=== PATIENT | male | born 1935 | race Caucasian/White ===

== ENCOUNTER 2017-05-04 15:34 | Emergency (ER) | payer MEDICARE ==
[2017-05-04 16:29] LABS: #Eosinphils 0.2 thou/uL (0.0-0.7); #Lymphocytes 0.8 thou/uL (1.20-3.40); #Monocytes 0.4 thou/uL (0.11-0.59); #Neutrophils 3.6 thou/uL (1.40-6.50); %Basophils 0.2 % (0.0-1.0); %Eosinophils 4.8 % (0.0-10.0); %Lymphocytes 15.8 % (21.0-51.0); %Monocytes 8.7 % (0.0-10.0); %Neutrophils 70.4 % (42.0-75.0); Hemoglobin 11.3 g/dL (14.0-18.0); Mean Corpuscular HGB CONC 32.9 g/dL (32.0-36.0); Mean Corpuscular Hemoglobin 29.4 pg (27.0-31.0); Mean Corpuscular Volume 89.6 fl (80.0-94.0); Mean Platelet Volume 8.7 fL (7.4-10.4); Platelet Count 164 thou/uL (130-400); RBC Distribution Width 12.8 % (11.5-14.5); Red Blood Cell (RBC) Count 3.83 mill/uL (4.70-6.10)
[2017-05-04 16:30] LABS: INR-International Normal Ratio 1.2; PTT 29.1 SEC (22.9-36.1); Prothrombin Time 14.9 SEC (12.0-14.7)
[2017-05-04 16:49] LABS: ALT (SGPT) 47 U/L (8-55); AST (SGOT) 34 U/L (5-34); Albumin 3.5 g/dL (3.4-4.8); Alkaline Phosphatase 68 U/L (40-150); Anion Gap 11 mmol/L (10-20); BUN (Urea Nitrogen) 20 mg/dL (8.4-25.7); Bilirubin, Total 0.4 mg/dL (0.2-1.2); Calc. Creatinine Clearance 0 mL/min (70-130); Calcium 9.2 mg/dL (7.8-10.44); Carbon Dioxide 28 mmol/L (23-31); Chloride 102 mmol/L (98-107); Estimated GFR-MDRD 57; Globulin 3.3 g/dL (2.4-3.5); Glucose 309 mg/dL (83-110); Potassium 3.9 mmol/L (3.5-5.1); Protein, Total 6.8 g/dL (5.8-8.1); Sodium 137 mmol/L (136-145)
[2017-05-04 16:51] LABS: Troponin I 0.024 ng/mL (< 0.028)
--- NOTE | 2017-05-04 17:29 | RAD ---
ONE VIEW CHEST 05/04/17 HISTORY: Cough. COMPARISON: 12/28/16. FINDINGS: Portable upright chest demonstrates a normal cardiac silhouette. Pulmonary vessels are prominent. Th ere is right hilar fullness. There are diffuse reticulonodular opacities, without consolidation or ma ss. No pneumothorax or osseous abnormalities. IMPRESSION: Pulmonary vascular prominence. Interstitial edema. Volume overload. Continued surveillance. Right hilar fullness. Better interrogation with a nonemergent chest CT is recommended. Dr. Elizondo, 05/04/17, at 5:15 p.m. Code CR POS: [facility]
== END 2017-05-04 17:55 | disposition home or self-care (01) ==
LOC: ERS 15:34
DX: K92.2 Gastrointestinal hemorrhage, unspecified (principal); D64.9 Anemia, unspecified; E10.9 Type 1 diabetes mellitus without complications; I10 Essential (primary) hypertension; Z79.899 Other long term (current) drug therapy; Z79.01 Long term (current) use of anticoagulants; Z79.4 Long term (current) use of insulin
CPT/HCPCS: 71045; 80053; 83880; 84484; 85025; 85610; 85730; 86850; 86900; 86901

== ENCOUNTER 2017-07-24 13:13 | Inpatient (IN) | payer MEDICARE ==
[~2017-07-24 13:13] MED LIST: ISOVUE-370 76%-LOCM 1 ML ONE
[2017-07-24 14:05] LABS: #Eosinphils 0.3 thou/uL (0.0-0.7); #Lymphocytes 0.9 thou/uL (1.20-3.40); #Monocytes 0.6 thou/uL (0.11-0.59); #Neutrophils 4.2 thou/uL (1.40-6.50); %Basophils 0.5 % (0.0-1.0); %Eosinophils 5.7 % (0.0-10.0); %Lymphocytes 14.7 % (21.0-51.0); %Monocytes 9.7 % (0.0-10.0); %Neutrophils 69.4 % (42.0-75.0); Hemoglobin 13.4 g/dL (14.0-18.0); Mean Corpuscular HGB CONC 32.7 g/dL (32.0-36.0); Mean Corpuscular Hemoglobin 27.6 pg (27.0-31.0); Mean Corpuscular Volume 84.2 fl (80.0-94.0); Mean Platelet Volume 8.1 fL (7.4-10.4); Platelet Count 161 thou/uL (130-400); Red Blood Cell (RBC) Count 4.86 mill/uL (4.70-6.10)
[2017-07-24 14:27] LABS: ALT (SGPT) 26 U/L (8-55); AST (SGOT) 26 U/L (5-34); Albumin 4.1 g/dL (3.4-4.8); Alkaline Phosphatase 66 U/L (40-150); Anion Gap 12 mmol/L (10-20); BUN (Urea Nitrogen) 25 mg/dL (8.4-25.7); Bilirubin, Total 0.4 mg/dL (0.2-1.2); Calc. Creatinine Clearance 0 mL/min (70-130); Calcium 9.8 mg/dL (7.8-10.44); Carbon Dioxide 26 mmol/L (23-31); Chloride 103 mmol/L (98-107); Estimated GFR-MDRD 52; Globulin 3.4 g/dL (2.4-3.5); Glucose 121 mg/dL (83-110); Potassium 3.9 mmol/L (3.5-5.1); Protein, Total 7.5 g/dL (5.8-8.1); Sodium 137 mmol/L (136-145)
[2017-07-24 14:28] LABS: Bilirubin Negative (Negative); Blood, Urine Negative (Negative); Clarity CLEAR (Clear); Glucose, Urine (Dipstick) Negative (Negative); Leukocyte Negative (Negative); Nitrite Negative (Negative); Protein, Urine (Dipstick) Negative (Neg-Trace); Specific Gravity, Urine 1.012 (1.002-1.036)
[2017-07-24 18:03] LABS: INR-International Normal Ratio 1.1; Prothrombin Time 14.2 SEC (12.0-14.7)
[2017-07-24] MEDS ORDERED: Acetaminophen 325 MG TAB PO PRN (19:28)
[2017-07-24] MEDS ORDERED: Dextrose 5% in Water 1,000 ML IV PRN (19:54)
[2017-07-24] MEDS ORDERED: Dextrose 50% Abboject 50 ML SYRINGE SLOW IVP PRN (19:54)
[2017-07-24] MEDS ORDERED: Pantoprazole 40 MG VIAL ONE (20:22)
[2017-07-24 20:35] LABS: Hemoglobin 12.9 g/dL (14.0-18.0)
--- NOTE | 2017-07-24 20:47 | CT ---
CT OF THE BRAIN WITHOUT CONTRAST 07/24/17 INDICATION: Rectal bleeding with headache. COMPARISON: Prior exam dated 06/17/12. FINDINGS: There is generalized cerebral and cerebellar atrophy with prominent vascular calcifications involving the intracranial arteries. No definite acute infarct, hemorrhage, or hydrocephalus is present. There is mucosal thickening within the ethmoid air cells. Skull is intact. IMPRESSION: 1. No acute intracranial abnormality. 2. Mild paranasal sinus disease. POS: [facility]
[2017-07-24] MEDS ORDERED: Famotidine 40 MG/4 ML VIAL SLOW IVP SCH (21:00)
[2017-07-24] MEDS ORDERED: Pantoprazole 40 MG VIAL IVP SCH (21:00)
--- NOTE | 2017-07-24 21:00 | CT ---
CT ABDOMEN AND PELVIS WITH IV CONTRAST: INDICATIONS: Rectal bleeding and abdominal pain. FINDINGS: There is a 3.2 cm cyst within the right hepatic dome. A smaller cyst is seen within segment 5 of the right hepatic lobe. The gallbladder is surgically absent. The pancreas and adrenal glands are unremarkable. There is nonspecific claudia mesentery of the central mesenteric fat. No pathologically enlarged lymph nodes are evident. There is scattered vascular calcification. The visualized kidneys are normal appearing. There are mild calcifications involving the abdominal and pelvis vasculature. There is prominent wall thickening with surrounding inflammatory stranding involving the rectum. The re is a moderate amount of retained stool within the colon. There are scattered colonic diverticula. There is a normal appendix in the right lower quadrant. The small bowel has a normal caliber. The re is diffuse osteopenia. No acute osseous abnormality is evident. IMPRESSION: 1. Wall thickening with surrounding inflammatory change involving the rectum, suspicious for proctit is. Rectal malignancy is not excluded. Recommend correlation with clinical exam. 2. Moderate amount of retained stool. 3. Bladder diverticulum. 4. Right hepatic lobe cyst. 5. Cholecystectomy. 6. Colonic diverticulosis. POS: [facility]
[2017-07-24 22:08] VITALS: BMI 31.7
[2017-07-24] MEDS: Dextrose 5 % And 0.9 % NaCl 1,000 ML IV SCH (22:29)
[2017-07-24] MEDS: Tamsulosin HCl 0.4 MG CAP PO SCH (22:33)
--- NOTE | 2017-07-25 00:16 | HP ---
PRIMARY CARE PHYSICIAN: Dr. Bang CHIEF COMPLAINT: Bright blood per rectum. HISTORY OF PRESENT ILLNESS: Patient is a very pleasant 81-year-old male with a history of atrial fib rillation, on Eliquis; history of prostate cancer, status post radiation; who presents to the [facility] with complaints of bright blood per rectum. Upon questioning the patient and the patient's [facility] er, patient states that he has been having this rectal bleeding ongoing for the past 4 months. [facility] er, he continues to take Eliquis. Patient stated that today he went to the bathroom, had 2 balls of stool, and followed by when he tried to clean himself, he noticed a lot of blood in the tissue paper and also had multiple clots. Patient stated that, later on today, he had a similar episode; however, the clots were more than his baseline clots. Patient denies any dizziness or lightheadedness; [facility], the caregiver states that whenever patient bleeds quite a bit, he actually gets very, very sleepy . Patient states that he does have some lower abdominal pain. Did state that he did have some burni ng when urinating. The patient denies any fevers or chills, any nausea, vomiting, or diarrhea. PAST MEDICAL HISTORY: Atrial fibrillation, on apixaban; DM, type 2; hypertension; prostate cancer, r adiation in 2017. PAST SURGICAL HISTORY: He had a cholecystectomy. SOCIAL HISTORY: He denies any alcohol use, drug use, or any smoking history. REVIEW OF SYSTEMS: The following complete review of systems was negative, unless otherwise mentioned in the HPI or below: Constitutional: Weight loss or gain, ability to conduct usual activities. Sk in: Rash, itching. Eyes: Double vision, pain. ENT/Mouth: Nose bleeding, neck stiffness, pain, te nderness. Cardiovascular: Palpitations, dyspnea on exertion, orthopnea. Respiratory: Shortness of breath, wheezing, cough, hemoptysis, fever, or night sweats. Gastrointestinal: Poor appetite, abdo scott pain, heartburn, nausea, vomiting, constipation, or diarrhea. Genitourinary: Urgency, frequen cy, dysuria, nocturia. Musculoskeletal: Pain, swelling. Neurologic/Psychiatric: Anxiety, depressi on. Allergy/Immunologic: Skin rash, bleeding tendency. All negative except for the ones mentioned in the HPI. MEDICATIONS: This is per ER's note, glipizide 10 mg twice a day, finasteride 1 mg daily, Lipitor 10 mg daily, Flomax 0.4 mg daily, furosemide 20 mg daily, Humulin 70/30 unknown units twice a day, omepr azole 20 mg daily, amlodipine 10 mg daily, Eliquis 5 mg daily. LABORATORY AND X-RAY FINDINGS: [facility], patient's WBCs are 6.0, hemoglobin of 13.3, hematocrit 40.9 , platelets of 161. Chemistry: Sodium of 137, potassium of 3.9, bicarbonate of 26, anion gap of 12, creatinine of 1.32. Lactic acid of 1.3. LFTs are normal. Urine completely normal. PHYSICAL EXAMINATION: VITAL SIGNS: He has 97.5 temperature, 96% on room air, 18 respirations, 79 pulse, 149/79. GENERAL: He is awake, alert, oriented x3, does not appear pale. CARDIOVASCULAR: S1 and S2 present. No murmurs, rubs, or gallops. Irregularly irregular. LUNGS: Clear to auscultation, no rhonchi or wheezes noted. ABDOMEN: Soft. Bowel sounds are present x2. Pain upon palpation to bilateral suprapubic area. Ginette ble to appreciate hepatomegaly or splenomegaly. EXTREMITIES: A 2+ lower extremity pitting edema. ASSESSMENT AND PLAN: The patient is a very pleasant 81-year-old male, who presents to the hospital w ith complaints of bright blood per rectum. 1. Bright blood per rectum. This could be most likely secondary to either proctitis since he has tanner d radiation around his prostate area versus diverticulosis. The patient does not have any pain when he goes to the bathroom. However, has been having lower abdominal pain. The patient did have a CT a bdomen and pelvis, the results are pending. We will hold the patient's Eliquis. We will start hydra ting gently. We will also consult Gastroenterology. May start prophylactic antibiotics even though his urine appears normal, since he has been complaining of burning, and since the bleeding is unclear if it is from diverticulosis versus proctitis. We will continue patient's PPI. 2. Atrial fibrillation. I am not sure why this patient has continued to take Eliquis given his freq uent bleeding. May want to hold off on the Eliquis. I discussed with the patient the risk of scenar io having a stroke or continues to have gastrointestinal bleed. We will continue to monitor patient. 3. Diabetes. We will put the patient on sliding scale. We will hold off on his 70/30 for now, sinc e he is currently on clear liquids and will n.p.o. after midnight in case Gastroenterology wants to d o any procedures. 4. Sequential compression devices for deep vein thrombosis prophylaxis.
[2017-07-25 02:12] LABS: Hemoglobin 11.7 g/dL (14.0-18.0)
[2017-07-25 05:47] LABS: #Eosinphils 0.3 thou/uL (0.0-0.7); #Lymphocytes 0.8 thou/uL (1.20-3.40); #Monocytes 0.6 thou/uL (0.11-0.59); #Neutrophils 3.7 thou/uL (1.40-6.50); %Basophils 0.2 % (0.0-1.0); %Eosinophils 5.2 % (0.0-10.0); %Lymphocytes 15.2 % (21.0-51.0); %Monocytes 10.4 % (0.0-10.0); %Neutrophils 68.9 % (42.0-75.0); Mean Corpuscular HGB CONC 32.8 g/dL (32.0-36.0); Mean Corpuscular Hemoglobin 27.7 pg (27.0-31.0); Mean Corpuscular Volume 84.4 fl (80.0-94.0); Mean Platelet Volume 8.2 fL (7.4-10.4); Platelet Count 143 thou/uL (130-400); RBC Distribution Width 13.8 % (11.5-14.5); Red Blood Cell (RBC) Count 4.35 mill/uL (4.70-6.10); White Blood Cell (WBC) Count 5.4 thou/uL (4.8-10.8)
[2017-07-25 05:59] LABS: ALT (SGPT) 22 U/L (8-55); AST (SGOT) 21 U/L (5-34); Albumin 3.6 g/dL (3.4-4.8); Alkaline Phosphatase 54 U/L (40-150); Anion Gap 11 mmol/L (10-20); BUN (Urea Nitrogen) 18 mg/dL (8.4-25.7); Bilirubin, Total 0.5 mg/dL (0.2-1.2); Calc. Creatinine Clearance 70 mL/min (70-130); Carbon Dioxide 25 mmol/L (23-31); Chloride 107 mmol/L (98-107); Estimated GFR-MDRD 60; Globulin 2.7 g/dL (2.4-3.5); Glucose 159 mg/dL (83-110); Potassium 3.9 mmol/L (3.5-5.1); Protein, Total 6.3 g/dL (5.8-8.1); Sodium 139 mmol/L (136-145)
[2017-07-25 08:38] LABS: Hemoglobin 12.3 g/dL (14.0-18.0)
[2017-07-25] MEDS ORDERED: Prevnar 13-Val Conj/PF 0.5 ML SYRINGE IM ONE (09:00)
[2017-07-25] MEDS ORDERED: Pantoprazole 40 MG VIAL IVP SCH (09:00)
[2017-07-25] MEDS: Dextrose 5 % And 0.9 % NaCl 1,000 ML IV SCH ×2 (09:56→21:44)
--- NOTE | 2017-07-25 14:09 | PDOC.PN ---
- Subjective Encounter Start Date: 07/25/17 Encounter Start Time: 10:00 Subjective: pt up in bed no complains - Objective Resuscitation Status: Resuscitation Status FULL:Full Resuscitation Vital Signs & Weight: Vital Signs (12 hours) Temp Pulse Resp BP Pulse Ox 07/25/17 13:02 98.4 F 58 L 18 121/74 99 07/25/17 08:00 97.6 F 66 20 123/65 96 07/25/17 04:00 98.1 F 64 20 110/71 96 I&O: 07/24/17 07/25/17 07/26/17 06:59 06:59 06:59 Intake Total 1050 Balance 1050 Result Diagrams: 07/25/17 08:28 07/25/17 05:25 Additional Labs: Accuchecks 07/25/17 07/25/17 07/25/17 11:32 04:38 00:12 POC Glucose 155 H 160 H 179 H 07/24/17 21:56 POC Glucose 64 L Phys Exam - Physical Examination HEENT: PERRLA, moist MMs, sclera anicteric, TM's clear, oral pharynx no lesions , 2+ tonsils Neck: no nodes, no JVD, supple, full ROM Respiratory: no wheezing, no rales, no rhonchi, wheezing present, clear to auscultation bilateral Cardiovascular: RRR, no significant murmur, no rub, gallop, irregular Gastrointestinal: soft, non-tender, no distention, positive bowel sounds Neurological: non-focal, normal sensation, moves all 4 limbs Dx/Plan - Plan * 1) bright blood per rectum * 2) proctitis: ct finding indicates thickening around the rectum. * 3) afib * 4) hx of prostate cancer s/p radiation * * plan: pt's hh has been stable. He was on eliquis which is held. Pt has been having this problem for several months now but i was told by the caregiver yesterday that his bleeding was more than usual. Also pt strains when he goes to the bathroom. Ua normal. Awaiting gi eval. will put pt on stool softeners and stimulants so that he does not strain. Also he needs to discuses options in regards to continuing AC given his frequent bleeding problem. * * pt today has had two bowel movements and noticed blood only on tissue. Review of Systems - Review of Systems Eyes: negative: Pain, Vision Change, Conjunctivae Inflammation, Eyelid Inflammation, Redness, Other ENT: negative: Ear Pain, Ear Discharge, Nose Pain, Nose Discharge, Nose Congestion, Mouth Pain, Mouth Swelling, Throat Pain, Throat Swelling, Other Respiratory: negative: Cough, Dry, Shortness of Breath, Hemoptysis, SOB with Excertion, Pleuritic Pain, Sputum, Wheezing Cardiovascular: negative: chest pain, palpitations, orthopnea, paroxysmal nocturnal dyspnea, edema, light headedness, other Gastrointestinal: negative: Nausea, Vomiting, Abdominal Pain, Diarrhea, Constipation, Melena, Hematochezia, Other Genitourinary: negative: Dysuria, Frequency, Incontinence, Hematuria, Retention , Other Musculoskeletal: negative: Neck Pain, Shoulder Pain, Arm Pain, Back Pain, Hand Pain, Leg Pain, Foot Pain, Other - Medications/Allergies Allergies/Adverse Reactions: Allergies Allergy/AdvReac Type Severity Reaction Status Date / Time No Known Allergies Allergy Verified 07/24/17 22:21 Medications: Current Medications Acetaminophen (Tylenol) 650 mg PO Q4H PRN PRN Reason: Headache/Fever or Pain Dextrose/Water (Dextrose 50%) 25 gm SLOW IVP PRN PRN PRN Reason: Hypoglycemia Glucagon (Glucagon) 1 mg IM PRN PRN PRN Reason: Hypoglycemia Dextrose/Sodium Chloride (D5 0.9% Ns) 1,000 mls @ 75 mls/hr IV .[id number] [facility] Last Admin: 07/25/17 09:56 Dose: 1,000 mls Dextrose/Water (D5w) 1,000 mls @ 0 mls/hr IV .Q0M PRN; As Directed PRN Reason: Hypoglycemia Insulin Human Lispro (Humalog) 0 units SC .MILD SLIDING SCALE PRN PRN Reason: Mild Correctional Scale Pantoprazole Sodium (Protonix) 40 mg IVP Q12HR [facility] Last Admin: 07/25/17 09:52 Dose: 40 mg Polyethylene Glycol (Miralax) 17 gm PO DAILY [facility] Senna/Docusate Sodium (Senokot S) 1 tab PO BID [facility] Sodium Chloride (Flush - Normal Saline) 10 ml IVF Q12HR [facility] Last Admin: 07/25/17 09:56 Dose: Not Given Sodium Chloride (Flush - Normal Saline) 10 ml IVF PRN PRN PRN Reason: Saline Flush Tamsulosin HCl (Flomax) 0.4 mg PO [facility] Last Admin: 07/24/17 22:33 Dose: 0.4 mg
[2017-07-25 14:49] LABS: Hemoglobin 12.7 g/dL (14.0-18.0)
[2017-07-25] MEDS ORDERED: GoLYTELY 4,000 ml Bottle PO SCH (15:15)
[2017-07-25] MEDS ORDERED: Senokot S 8.6-50 MG TAB PO SCH ×2 (16:15→21:00)
[2017-07-25] MEDS: HumaLOG 300 UNITS/3 ML VIAL SC PRN (18:37)
[2017-07-25] MEDS: Tamsulosin HCl 0.4 MG CAP PO SCH (20:09)
[2017-07-25] MEDS: Senokot S 8.6-50 MG TAB PO SCH (20:09)
--- NOTE | 2017-07-25 23:59 | CON ---
DATE OF CONSULTATION: 07/25/2017 HISTORY OF PRESENT ILLNESS: Mr. Carrasquillo was admitted to the hospital for rectal bleeding. He called our office and said he was going to the hospital yesterday for bleeding and the fact that he could no t urinate. In the emergency room, he had a large amount of blood clots and he was feeling weak that he could not urinate. He has had a previous history, now he notes he is urinating fine. 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 He was back in the office in early July with ongoing slight bleeding, but stable hemoglobin above 12. He is on Eliquis and we explained to him that he will have intermittent bleeding at times. Here in the emergency room, he had a stable hemoglobin and stable v ital signs. It is not clear that any rectal examination was done, it does not appear so. They perfo rmed a CAT scan of the abdomen and pelvis and admitted him. A CAT scan show some surrounding inflamm ation and wall thickening around the rectum suspicious for "proctitis". On my review, he has quite a bit of retained stool. On talking to the patient, he states he is actually not having blood in the stool; just when he wipes, he sees blood. PAST MEDICAL HISTORY: Atrial fibrillation on apixaban, diabetes type 2, hypertension, prostate cance r with radiation in 2016. PAST SURGICAL HISTORY: Cholecystectomy, previous colonoscopies, recent colonoscopy in 03/2017 with a rgon plasma coagulation, ablation of radiation proctitis. SOCIAL HISTORY: No alcohol, drugs, or tobacco. REVIEW OF SYSTEMS: Negative for chest pain, shortness of breath, dyspnea on exertion. PRESENT MEDICATIONS: Tylenol, D5 normal at 75, glucagon insulin, Protonix, MiraLax, Senokot b.i.d. s cheduled and appeared to have been given. PHYSICAL EXAMINATION: VITAL SIGNS: Temperature 98, pulse 58, blood pressure 120/74. GENERAL: The patient is resting comfortably in bed. He states he feels well, he is not dizzy or fee ling weak. LABORATORY DATA: Hemoglobin is 13.4 on admission, is 12.7 today. He has had 6 hemoglobins drawn sin ce he has been here. ASSESSMENT: Rectal bleeding, likely related to hemorrhoids or small amounts of radiation proctitis i n relationship to a large fecal impaction and being on anticoagulation. RECOMMENDATIONS: 1. Stop serial H&Hs. 2. Bowel preparation. 3. We will perform a flex sig tomorrow and if there is any more radiation proctitis and this needs t o be ablated, we can do that in the future. I do not think the patient needs to be admitted for rect al bleeding unless he is having acute hemorrhage and has signs of overt blood loss.
[2017-07-26] MEDS: Dextrose 5 % And 0.9 % NaCl 1,000 ML IV SCH (04:58)
[2017-07-26] MEDS: Polyethylene Glycol 3350 17 GM Packet PO SCH (07:28)
--- NOTE | 2017-07-26 10:29 | OP ---
DATE OF PROCEDURE: 07/26/2017 SURGEON: Robin Chin M.D. HELICOPTER MECHANIC SURGEON: None. PROCEDURE: Flexible sigmoidoscopy with argon plasma coagulation treatment. INDICATION: 1. Rectal bleeding. 2. History of rectal radiation telangiectasia's. MEDICATIONS: See anesthesia record. FINDINGS: After discussion of the risks, benefits and alternatives of the procedure, informed consen t was obtained and witnessed. Pre-endoscopic cardiopulmonary examination was satisfactory. Timeout was performed before sedation was achieved. Sedation was achieved with anesthesia assistance in the endoscopy unit. Digital rectal exam was performed which was unremarkable. A Pentax adult colonoscop e was inserted into the rectum and passed forward to a distance of 45 cm from the anal verge. The co lonoscope was slowly withdrawn in a gradual and circumferential manner with careful examination of th e colonic mucosa. The quality of the prep was good. There was diverticulosis in the sigmoid colon. No evidence of diverticulitis. No old blood or active bleeding noted anywhere. In the distal rectu m, there is patchy radiation telangiectasia's comparing the appearance now to the images from his jb or procedure, the number of telangiectasia's is greatly reduced. There are a few areas of mild friab ility and oozing. In the very distal rectum, there is some shallow ulceration without bleeding, like ly consistent with prior radiation changes as well as prior APC treatment. I did perform argon plasm a coagulation treatment to the remaining rectal telangiectasia's at a setting of 0.8 liters per minut e and 30 pedro. Estimated blood loss was minimal. The exam was otherwise without abnormality on dir ect and retroflexed views. The colonoscope was completely withdrawn and the patient allowed to recov er. The patient tolerated the procedure well. There were no immediate post-procedure complications. IMPRESSION: 1. 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 2. Shallow ulcer in the distal rectum consistent with prior APC treatment and radiation changes. 3. Sigmoid diverticulosis. RECOMMENDATIONS: 1. Advance diet. 2. Daily stool softener. 3. GI will sign off. Okay for hospital discharge from a GI perspective. Follow up in clinic with Emiliano Miner in 2-3 weeks. Please call back with questions or concerns.
[2017-07-26] MEDS: Senokot S 8.6-50 MG TAB PO SCH ×2 (11:13→20:24)
--- NOTE | 2017-07-26 12:52 | PDOC.PN ---
- Subjective Encounter Start Date: 07/26/17 Encounter Start Time: 08:45 -: old records requested/rev pt had colonoscopy, still pt has some blood in stool Patient seen and examined. No new complaints. No overnight events - Objective Resuscitation Status: Resuscitation Status FULL:Full Resuscitation MAR Reviewed: Yes Vital Signs & Weight: Vital Signs (12 hours) Temp Pulse Resp BP Pulse Ox 07/26/17 11:00 97.4 F L 64 16 158/82 H 98 07/26/17 08:00 97.8 F 68 18 07/26/17 07:13 97.8 F 68 18 144/82 H 96 07/26/17 04:00 97.6 F 72 18 112/63 95 I&O: 07/25/17 07/26/17 07/27/17 06:59 06:59 06:59 Intake Total 1050 Balance 1050 Result Diagrams: 07/25/17 14:34 07/25/17 05:25 Additional Labs: Accuchecks 07/26/17 07/26/17 07/26/17 11:18 08:09 04:21 POC Glucose 129 H 154 H 102 07/25/17 07/25/17 20:29 17:19 POC Glucose 243 H 276 H Phys Exam - Physical Examination Constitutional: NAD HEENT: PERRLA, moist MMs, sclera anicteric Neck: no JVD, supple Respiratory: no wheezing, no rales, no rhonchi Cardiovascular: RRR, no significant murmur, no rub Gastrointestinal: soft, non-tender, no distention, positive bowel sounds Musculoskeletal: no edema, pulses present Neurological: non-focal, normal sensation, moves all 4 limbs Psychiatric: normal affect, A&O x 3 Skin: no rash, normal turgor Dx/Plan (1) Acute radiation proctitis Code(s): K62.89 - OTHER SPECIFIED DISEASES OF ANUS AND RECTUM; T66.XXXA - RADIATION SICKNESS, UNSPECIFIED, INITIAL ENCOUNTER Status: Acute (2) Obesity (BMI 30.0-34.9) Code(s): E66.9 - OBESITY, UNSPECIFIED Status: Acute (3) Rectal bleed Code(s): K62.5 - HEMORRHAGE OF ANUS AND RECTUM Status: Acute (4) BPH (benign prostatic hyperplasia) Code(s): N40.0 - BENIGN PROSTATIC HYPERPLASIA WITHOUT LOWER URINRY TRACT SYMP Status: Chronic (5) Chronic anticoagulation Code(s): Z79.01 - PRISON (CURRENT) USE OF ANTICOAGULANTS Status: Chronic (6) Diabetes type 2, controlled Code(s): E11.9 - TYPE 2 DIABETES MELLITUS WITHOUT COMPLICATIONS Status: Chronic (7) Dyslipidemia Code(s): E78.5 - HYPERLIPIDEMIA, UNSPECIFIED Status: Chronic (8) GERD (gastroesophageal reflux disease) Code(s): K21.9 - GASTRO-ESOPHAGEAL REFLUX DISEASE WITHOUT ESOPHAGITIS Status: Chronic (9) Hypertension Code(s): I10 - ESSENTIAL (PRIMARY) HYPERTENSION Status: Chronic (10) Paroxysmal atrial fibrillation Code(s): I48.0 - PAROXYSMAL ATRIAL FIBRILLATION Status: Chronic - Plan cont current plan of care * His H & H is stable * his rectal bleed is treated today with APC * pt will be monitored today and repeat CBC tomorrow * if stable by tomorrow, then will consider discharge * will ask GI when we can start anticoagulation safely on him * medication reviewed as below * symptomatic treatment. Review of Systems - Review of Systems Constitutional: negative: fever, chills, sweats, weakness, malaise, other Eyes: negative: Pain, Vision Change, Conjunctivae Inflammation, Eyelid Inflammation, Redness, Other ENT: negative: Ear Pain, Ear Discharge, Nose Pain, Nose Discharge, Nose Congestion, Mouth Pain, Mouth Swelling, Throat Pain, Throat Swelling, Other Respiratory: negative: Cough, Dry, Shortness of Breath, Hemoptysis, SOB with Excertion, Pleuritic Pain, Sputum, Wheezing Cardiovascular: negative: chest pain, palpitations, orthopnea, paroxysmal nocturnal dyspnea, edema, light headedness, other Gastrointestinal: Hematochezia. negative: Nausea, Vomiting, Abdominal Pain, Diarrhea, Constipation, Melena, Other Genitourinary: negative: Dysuria, Frequency, Incontinence, Hematuria, Retention , Other Musculoskeletal: negative: Neck Pain, Shoulder Pain, Arm Pain, Back Pain, Hand Pain, Leg Pain, Foot Pain, Other Skin: negative: Rash, Lesions, Emiliano, Bruising, Other - Medications/Allergies Allergies/Adverse Reactions: Allergies Allergy/AdvReac Type Severity Reaction Status Date / Time No Known Allergies Allergy Verified 07/24/17 22:21 Medications: Current Medications Acetaminophen (Tylenol) 650 mg PO Q4H PRN PRN Reason: Headache/Fever or Pain Dextrose/Water (Dextrose 50%) 25 gm SLOW IVP PRN PRN PRN Reason: Hypoglycemia Docusate Sodium (Colace) 100 mg PO BID [facility] Glucagon (Glucagon) 1 mg IM PRN PRN PRN Reason: Hypoglycemia Dextrose/Sodium Chloride (D5 0.9% Ns) 1,000 mls @ 75 mls/hr IV .[id number] [facility] Last Admin: 07/26/17 04:58 Dose: 1,000 mls Dextrose/Water (D5w) 1,000 mls @ 0 mls/hr IV .Q0M PRN; As Directed PRN Reason: Hypoglycemia Insulin Human Lispro (Humalog) 0 units SC .MILD SLIDING SCALE PRN PRN Reason: Mild Correctional Scale Last Admin: 07/25/17 18:37 Dose: 4 unit Polyethylene Glycol (Miralax) 17 gm PO DAILY [facility] Last Admin: 07/26/17 07:28 Dose: Not Given Senna/Docusate Sodium (Senokot S) 1 tab PO BID [facility] Last Admin: 07/26/17 11:13 Dose: Not Given Sodium Chloride (Flush - Normal Saline) 10 ml IVF Q12HR [facility] Last Admin: 07/26/17 07:40 Dose: Not Given Sodium Chloride (Flush - Normal Saline) 10 ml IVF PRN PRN PRN Reason: Saline Flush Tamsulosin HCl (Flomax) 0.4 mg PO HS [facility] Last Admin: 07/25/17 20:09 Dose: 0.4 mg
[2017-07-26] MEDS ORDERED: Lidocaine 1% PF 5 ML VIAL ONE (17:09)
[2017-07-26] MEDS ORDERED: PROPOFOL 200 MG/20 ML VIAL ONE (17:09)
[2017-07-26] MEDS ORDERED: ePHEDrine/0.9% NaCl/PF SYRINGE 50 mg/10 ml ONE (17:09)
[2017-07-26] MEDS: Tamsulosin HCl 0.4 MG CAP PO SCH (20:24)
[2017-07-26] MEDS: Docusate 100 MG CAP PO SCH (20:24)
[2017-07-26] MEDS: HumaLOG 300 UNITS/3 ML VIAL SC PRN (21:28)
[2017-07-27 04:32] LABS: #Eosinphils 0.4 thou/uL (0.0-0.7); #Lymphocytes 0.7 thou/uL (1.20-3.40); #Monocytes 0.8 thou/uL (0.11-0.59); #Neutrophils 4.5 thou/uL (1.40-6.50); %Basophils 0.5 % (0.0-1.0); %Eosinophils 6.7 % (0.0-10.0); %Lymphocytes 10.4 % (21.0-51.0); %Monocytes 12.5 % (0.0-10.0); Hemoglobin 11.9 g/dL (14.0-18.0); Mean Corpuscular HGB CONC 32.3 g/dL (32.0-36.0); Mean Corpuscular Hemoglobin 27.5 pg (27.0-31.0); Mean Corpuscular Volume 85.3 fl (80.0-94.0); Mean Platelet Volume 8.4 fL (7.4-10.4); Platelet Count 142 thou/uL (130-400); RBC Distribution Width 13.9 % (11.5-14.5); Red Blood Cell (RBC) Count 4.34 mill/uL (4.70-6.10); White Blood Cell (WBC) Count 6.4 thou/uL (4.8-10.8)
[2017-07-27] MEDS: Senokot S 8.6-50 MG TAB PO SCH (08:36)
[2017-07-27] MEDS: Polyethylene Glycol 3350 17 GM Packet PO SCH (08:38)
[2017-07-27] MEDS: Docusate 100 MG CAP PO SCH (08:38)
[2017-07-27 11:18] VITALS: BP 151/71; TEMP 97.8
--- NOTE | 2017-07-27 11:50 | PDOC.PN ---
- Subjective Encounter Start Date: 07/27/17 Encounter Start Time: 08:30 Patient seen and examined. No new complaints. No overnight events - Objective Resuscitation Status: Resuscitation Status FULL:Full Resuscitation MAR Reviewed: Yes Vital Signs & Weight: Vital Signs (12 hours) Temp Pulse Resp BP Pulse Ox 07/27/17 11:17 97.8 F 86 16 151/71 H 98 07/27/17 08:08 98.6 F 73 16 110/68 95 07/27/17 07:26 98.3 F 86 18 07/27/17 01:01 98.3 F 86 18 149/59 H 96 Result Diagrams: 07/27/17 03:55 07/25/17 05:25 Additional Labs: Accuchecks 07/26/17 07/26/17 19:30 16:27 POC Glucose 230 H 236 H Phys Exam - Physical Examination Constitutional: NAD HEENT: PERRLA, moist MMs, sclera anicteric Neck: no JVD, supple Respiratory: no wheezing, no rales, no rhonchi Cardiovascular: RRR, no significant murmur, no rub Gastrointestinal: soft, non-tender, no distention, positive bowel sounds Musculoskeletal: no edema, pulses present Neurological: non-focal, normal sensation, moves all 4 limbs Psychiatric: normal affect, A&O x 3 Skin: no rash, normal turgor Dx/Plan (1) Acute radiation proctitis Code(s): K62.89 - OTHER SPECIFIED DISEASES OF ANUS AND RECTUM; T66.XXXA - RADIATION SICKNESS, UNSPECIFIED, INITIAL ENCOUNTER Status: Acute (2) Obesity (BMI 30.0-34.9) Code(s): E66.9 - OBESITY, UNSPECIFIED Status: Acute (3) Rectal bleed Code(s): K62.5 - HEMORRHAGE OF ANUS AND RECTUM Status: Acute (4) BPH (benign prostatic hyperplasia) Code(s): N40.0 - BENIGN PROSTATIC HYPERPLASIA WITHOUT LOWER URINRY TRACT SYMP Status: Chronic (5) Chronic anticoagulation Code(s): Z79.01 - INTERMEDIATE (CURRENT) USE OF ANTICOAGULANTS Status: Chronic (6) Diabetes type 2, controlled Code(s): E11.9 - TYPE 2 DIABETES MELLITUS WITHOUT COMPLICATIONS Status: Chronic (7) Dyslipidemia Code(s): E78.5 - HYPERLIPIDEMIA, UNSPECIFIED Status: Chronic (8) GERD (gastroesophageal reflux disease) Code(s): K21.9 - GASTRO-ESOPHAGEAL REFLUX DISEASE WITHOUT ESOPHAGITIS Status: Chronic (9) Hypertension Code(s): I10 - ESSENTIAL (PRIMARY) HYPERTENSION Status: Chronic (10) Paroxysmal atrial fibrillation Code(s): I48.0 - PAROXYSMAL ATRIAL FIBRILLATION Status: Chronic - Plan cont current plan of care * medication reviewed as below * symptomatic treatment * stable for discharge * see discharge summery. Review of Systems - Review of Systems ENT: negative: Ear Pain, Ear Discharge, Nose Pain, Nose Discharge, Nose Congestion, Mouth Pain, Mouth Swelling, Throat Pain, Throat Swelling, Other Respiratory: negative: Cough, Dry, Shortness of Breath, Hemoptysis, SOB with Excertion, Pleuritic Pain, Sputum, Wheezing Cardiovascular: negative: chest pain, palpitations, orthopnea, paroxysmal nocturnal dyspnea, edema, light headedness, other Gastrointestinal: negative: Nausea, Vomiting, Abdominal Pain, Diarrhea, Constipation, Melena, Hematochezia, Other Genitourinary: negative: Dysuria, Frequency, Incontinence, Hematuria, Retention , Other Musculoskeletal: negative: Neck Pain, Shoulder Pain, Arm Pain, Back Pain, Hand Pain, Leg Pain, Foot Pain, Other Skin: negative: Rash, Lesions, Emiliano, Bruising, Other - Medications/Allergies Allergies/Adverse Reactions: Allergies Allergy/AdvReac Type Severity Reaction Status Date / Time No Known Allergies Allergy Verified 07/24/17 22:21 Medications: Current Medications Acetaminophen (Tylenol) 650 mg PO Q4H PRN PRN Reason: Headache/Fever or Pain Dextrose/Water (Dextrose 50%) 25 gm SLOW IVP PRN PRN PRN Reason: Hypoglycemia Docusate Sodium (Colace) 100 mg PO BID [facility] Last Admin: 07/27/17 08:38 Dose: 100 mg Glucagon (Glucagon) 1 mg IM PRN PRN PRN Reason: Hypoglycemia Dextrose/Water (D5w) 1,000 mls @ 0 mls/hr IV .Q0M PRN; As Directed PRN Reason: Hypoglycemia Insulin Human Lispro (Humalog) 0 units SC .MILD SLIDING SCALE PRN PRN Reason: Mild Correctional Scale Last Admin: 07/26/17 21:28 Dose: 3 unit Polyethylene Glycol (Miralax) 17 gm PO DAILY [facility] Last Admin: 07/27/17 08:38 Dose: 17 gm Senna/Docusate Sodium (Senokot S) 1 tab PO BID [facility] Last Admin: 07/27/17 08:36 Dose: 1 tab Sodium Chloride (Flush - Normal Saline) 10 ml IVF Q12HR [facility] Last Admin: 07/27/17 08:38 Dose: 10 ml Sodium Chloride (Flush - Normal Saline) 10 ml IVF PRN PRN PRN Reason: Saline Flush Tamsulosin HCl (Flomax) 0.4 mg PO HS [facility] Last Admin: 07/26/17 20:24 Dose: 0.4 mg
--- NOTE | 2017-07-27 12:56 | DIS ---
DATE OF ADMISSION: 07/24/2017 DATE OF DISCHARGE: 07/27/2017 FAMILY NURSE PRACTITIONER: Merritt Kaiser. DISCHARGE DISPOSITION: Home. PRIMARY DISCHARGE DIAGNOSIS: Rectal bleed due to acute radiation proctitis status post colonoscopy. SECONDARY DISCHARGE DIAGNOSES: Obesity with BMI 31, benign enlargement of prostate, history of prost ate cancer, chronic anticoagulation with Eliquis; diabetes type 2, dyslipidemia, gastroesophageal ref lux disease, hypertension, and paroxysmal atrial fibrillation. PRIMARY PROCEDURE AND OPERATION: Sigmoid colonoscopy was done by Dr. Giuseppe Kelly and argon photocoagu lation therapy was performed. RADIOLOGICAL INVESTIGATION: Abdomen and pelvis CT scan showed findings suggestive for proctitis. CT brain was negative for any acute intracranial process. SIGNIFICANT LABORATORY DATA: WBC 6.4, hemoglobin 11.9, platelet 142. INR 1.1. Sodium 139, potassiu m 3.9, BUN 18, creatinine 1.16. LFT normal. Urinalysis normal. DISCHARGE MEDICATIONS: The patient is advised to resume Eliquis on Saturday. The patient is on follow ing medications: Norvasc 5 mg p.o. b.i.d. Eliquis 5 mg p.o. b.i.d., start on Saturday. Lipitor 20 mg p.o. at bedtime, finasteride 1 mg p.o. b.i.d., Lasix 20 mg p.o. daily, Amaryl 2 mg p.o. daily, omepr azole 10 mg p.o. daily, MiraLax 17 g p.o. daily, Aldactone 25 mg p.o. daily, and Flomax 0.4 mg p.o. d aily. CONTRAINDICATIONS: None. CODE STATUS: FULL CODE. INPATIENT CONSULTANTS: Dr. Miner and Dr. Chin was consulted while in hospital. TEST RESULTS PENDING ON DISCHARGE: None. ALLERGIES: No known drug allergy. DISCHARGE PLAN: Post hospital, the patient will follow up with primary care physician and gastroente rologist as instructed. HOSPITAL COURSE: An 81-year-old male who has history of prostate cancer and he underwent radiation t herapy. Subsequently, he was experiencing intermittent rectal pain. At this time, he presented with rectal pain and bleeding. He had CT of the abdomen and pelvis, which showed proctitis. In appropri ate clinical scenario, we suspect the radiation-induced proctitis. We consulted womens health nurse practitioner. This patient had a sigmoid colonoscopy and argon photocoagulation therapy was performed for visible vessel in the rectum. The patient's H&H remained stable. He did not require any blood transfusion while in hospital. The patient is hemodynamically stable and his active problem resolved. Patient is seen and examined at bedside today. Please see my progress note from today for further de tails. The patient is medically stable for discharge today.
== END 2017-07-27 14:25 | disposition home or self-care (01) | DRG 394 ==
LOC: ERS 13:13 → T4-A 19:16
PROVIDERS: ADMIT Internal Medicine; ATTEND Internal Medicine
PROC: 0W3P8ZZ Control Bleeding in Gastrointestinal Tract, Via Natural or Artificial Opening Endoscopic (ICD-10-PCS; principal; 2017-07-26)
DX: K62.7 Radiation proctitis (principal); K62.5 Hemorrhage of anus and rectum; I48.0 Paroxysmal atrial fibrillation; C61 Malignant neoplasm of prostate; K62.6 Ulcer of anus and rectum; E11.9 Type 2 diabetes mellitus without complications; E66.9 Obesity, unspecified; N40.0 Benign prostatic hyperplasia without lower urinary tract symptoms; Z79.01 Long term (current) use of anticoagulants; E78.5 Hyperlipidemia, unspecified; I10 Essential (primary) hypertension; K21.9 Gastro-esophageal reflux disease without esophagitis; K62.1 Rectal polyp; Z85.828 Personal history of other malignant neoplasm of skin; I78.1 Nevus, non-neoplastic; Z68.31 Body mass index [BMI] 31.0-31.9, adult; K57.30 Diverticulosis of large intestine without perforation or abscess without bleeding
CPT/HCPCS: 36415; 36416; 70450; 74177; 80053; 81003; 83605; 83690; 85025; 85610; 86850; 86900; 86901; 96361; 96374; A4216; C9113; J2001; J2704

== ENCOUNTER 2019-05-24 16:46 | Inpatient (IN) | payer MEDICARE ==
[~2019-05-24 16:46] MED LIST changes: -ISOVUE-370 76%-LOCM 1 ML ONE; +Iopamidol-370 76% 500 ML 1 ML ONE
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
[2019-05-24 17:17] LABS: #Eosinphils 0.2 thou/uL (0.0-0.7); #Lymphocytes 0.8 thou/uL (1.20-3.40); #Monocytes 0.4 thou/uL (0.11-0.59); #Neutrophils 4.9 thou/uL (1.40-6.50); %Basophils 0.2 % (0.0-1.0); %Eosinophils 2.6 % (0.0-10.0); %Lymphocytes 12.4 % (21.0-51.0); %Monocytes 6.6 % (0.0-10.0); %Neutrophils 78.2 % (42.0-75.0); Hemoglobin 14.9 g/dL (14.0-18.0); Mean Corpuscular HGB CONC 34.1 g/dL (32.0-36.0); Mean Corpuscular Hemoglobin 30.9 pg (27.0-31.0); Mean Corpuscular Volume 90.7 fL (78.0-98.0); Mean Platelet Volume 9.8 fL (7.4-10.4); Platelet Count 131 thou/uL (130-400); RBC Distribution Width 13.1 % (11.5-14.5); Red Blood Cell (RBC) Count 4.81 mill/uL (4.70-6.10); White Blood Cell (WBC) Count 6.2 thou/uL (4.8-10.8)
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
[2019-05-24] MEDS ORDERED: Morphine 4 MG/ML VIAL ONE ×2 (17:29→20:46)
[2019-05-24] MEDS ORDERED: Ondansetron PF 4 MG/2 ML Vial ONE (17:29)
[2019-05-24 17:37] LABS: INR-International Normal Ratio 1.1; PTT 27.5 SEC (22.9-36.1); Prothrombin Time 13.9 SEC (12.0-14.7)
[2019-05-24 17:38] LABS: ALT (SGPT) 32 U/L (8-55); AST (SGOT) 32 U/L (5-34); Alcohol Less than 10 mg/dL (Less than 10); Alkaline Phosphatase 76 U/L (40-110); Anion Gap 13 mmol/L (10-20); BUN (Urea Nitrogen) 28 mg/dL (8.4-25.7); Bilirubin, Total 0.7 mg/dL (0.2-1.2); Calc. Creatinine Clearance 0 mL/min (70-130); Calcium 9.3 mg/dL (7.8-10.44); Carbon Dioxide 24 mmol/L (23-31); Chloride 104 mmol/L (98-107); Estimated GFR-MDRD 43; Globulin 3.3 g/dL (2.4-3.5); Glucose 343 mg/dL (83-110); Protein, Total 7.3 g/dL (5.8-8.1); Sodium 137 mmol/L (136-145)
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
[2019-05-24] MEDS ORDERED: Acetaminophen 500 MG TAB ONE (18:47)
[2019-05-24] MEDS ORDERED: Cyclobenzaprine 10 MG TAB ONE (18:47)
[2019-05-24] MEDS ORDERED: traMADol HCl 50 MG TAB ONE (18:47)
[2019-05-24 18:53] LABS: Magnesium 1.9 mg/dL (1.6-2.6); Phosphorus 2.6 mg/dL (2.3-4.7)
[2019-05-24 19:19] LABS: CKMB 9.5 ng/mL (0-6.6)
[2019-05-24] MEDS ORDERED: Dextrose 50% Abboject 50 ML SYRINGE SLOW IVP PRN (19:21)
[2019-05-24] MEDS ORDERED: Insulin Regular 300 UNITS/3 ML VIAL SC PRN (19:21)
[2019-05-24] MEDS ORDERED: Dextrose 5% in Water 1,000 ML IV PRN (19:21)
[2019-05-24] MEDS ORDERED: Ondansetron ODT 4 MG TAB PO PRN (19:21)
[2019-05-24] MEDS ORDERED: TETANUS AND DIPHTHERIA TOX/PF 0.5 ML DISP.SYRIN IM ONE (19:21)
[2019-05-24] MEDS ORDERED: Ondansetron PF 4 MG/2 ML Vial IVP PRN (19:21)
[2019-05-24] MEDS ORDERED: hydrALAZINE 20 MG/ML VIAL SLOW IVP PRN (19:21)
[2019-05-24] MEDS ORDERED: Morphine 2 MG/ML SYRINGE SLOW IVP PRN ×2 (19:21→20:51)
[2019-05-24] MEDS ORDERED: Sodium Chloride 0.9% 500 ML IV SCH (19:30)
[2019-05-24] MEDS ORDERED: Cyclobenzaprine 10 MG TAB PO PRN (19:31)
[2019-05-24] MEDS ORDERED: Lidocaine 1% (PF) 30 ML VIAL ONE (19:47)
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
[2019-05-24] MEDS ORDERED: Famotidine 20 MG TAB PO SCH (21:00)
[2019-05-24 21:53] LABS: Bacteria/HPF None Seen HPF (None Seen); Bilirubin Negative (Negative); Blood, Urine Trace (Negative); Clarity Clear (Clear); Glucose, Urine (Dipstick) Greater than 1000 mg/dL (Negative); Leukocyte Negative Leu/uL (Negative); Nitrite Negative (Negative); Protein, Urine (Dipstick) 20 mg/dL (Neg-Trace); RBC/HPF 0-3 HPF (0-3); Squamous Epithelial 0-3 HPF (0-3); Urobilinogen Normal mg/dL (Less than 2); WBC/HPF 0-3 HPF (0-3)
[2019-05-25 00:11] VITALS: BMI 36.6
[2019-05-25] MEDS: Acetaminophen 500 MG TAB PO SCH ×4 (00:44→18:48)
[2019-05-25] MEDS: Gabapentin 100 MG CAP PO SCH ×4 (00:44→22:08)
[2019-05-25] MEDS: Insulin Regular 300 UNITS/3 ML VIAL SC PRN ×3 (00:47→18:26)
[2019-05-25] MEDS: traMADol HCl 50 MG TAB PO SCH ×4 (00:48→22:10)
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
[2019-05-25] MEDS: Senokot S 8.6-50 MG TAB PO SCH ×3 (03:32→22:08)
[2019-05-25 03:37] LABS: Mean Corpuscular HGB CONC 33.5 g/dL (32.0-36.0); Mean Corpuscular Hemoglobin 30.6 pg (27.0-31.0); Mean Corpuscular Volume 91.2 fL (78.0-98.0); Mean Platelet Volume 9.4 fL (7.4-10.4); Platelet Count 120 thou/uL (130-400); RBC Distribution Width 13.1 % (11.5-14.5); Red Blood Cell (RBC) Count 4.58 mill/uL (4.70-6.10); White Blood Cell (WBC) Count 9.2 thou/uL (4.8-10.8)
[2019-05-25 03:45] LABS: Anion Gap 12 mmol/L (10-20); BUN (Urea Nitrogen) 25 mg/dL (8.4-25.7); Calc. Creatinine Clearance 69 mL/min (70-130); Carbon Dioxide 25 mmol/L (23-31); Chloride 105 mmol/L (98-107); Estimated GFR-MDRD 52; Glucose 274 mg/dL (83-110); Potassium 4.4 mmol/L (3.5-5.1); Sodium 138 mmol/L (136-145)
[2019-05-25 04:30] LABS: Band 5 % (5-11); Lymphocytes 5 % (21-51); MDiff Complete? YES; Monocytes 10 % (0-10); Neutrophil 80 % (42-75)
--- NOTE | 2019-05-25 07:38 | CT ---
CT OF THE BRAIN WITHOUT CONTRAST: Date: 05/25/2019 COMPARISON: 05/24/2019. HISTORY: Follow-up subarachnoid hemorrhage. TECHNIQUE: Multiple contiguous axial images were obtained in a CT of the brain without contrast. FINDINGS: There is a stable small area of hyperdensity along the left frontal convexity. This could represent a small, stable area of subarachnoid hemorrhage. There is no evidence of hydrocephalus. No midline dayan ft or downward herniation is seen. The calvarium and overlying soft tissues are unremarkable. The visualized paranasal sinuses and masto id air cells are well aerated. IMPRESSION: Stable small left frontal subarachnoid hemorrhage. [facility]: [facility]
[2019-05-25] MEDS: Polyethylene Glycol 3350 17 GM Packet PO SCH (08:55)
[2019-05-25] MEDS ORDERED: FLU VACC TS2019-20(65YR UP)/PF 180 MCG/0.5 ML SYRINGE IM ONE (09:00)
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
[2019-05-25] MEDS ORDERED: Tamsulosin HCl 0.4 MG CAP PO SCH (13:30)
[2019-05-25] MEDS ORDERED: traMADol HCl 50 MG TAB PO PRN (16:37)
[2019-05-25] MEDS ORDERED: traMADol HCl 50 MG TAB PO SCH (18:00)
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
[2019-05-25] MEDS: Atorvastatin Calcium 40 MG TAB PO SCH (22:06)
[2019-05-25] MEDS: Amlodipine 10 MG TAB PO SCH (22:07)
[2019-05-25] MEDS: Finasteride 5 MG TAB PO SCH (22:08)
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
[2019-05-26] MEDS: Acetaminophen 500 MG TAB PO SCH ×6 (01:45→23:35)
[2019-05-26] MEDS: Insulin Regular 300 UNITS/3 ML VIAL SC PRN ×4 (06:03→21:32)
[2019-05-26 08:43] LABS: Anion Gap 11 mmol/L (10-20); BUN (Urea Nitrogen) 22 mg/dL (8.4-25.7); Calc. Creatinine Clearance 81 mL/min (70-130); Calcium 9.3 mg/dL (7.8-10.44); Carbon Dioxide 28 mmol/L (23-31); Chloride 103 mmol/L (98-107); Estimated GFR-MDRD 62; Glucose 194 mg/dL (83-110); Potassium 4.9 mmol/L (3.5-5.1); Sodium 137 mmol/L (136-145)
[2019-05-26] MEDS: Senokot S 8.6-50 MG TAB PO SCH ×2 (08:53→21:26)
[2019-05-26] MEDS: Gabapentin 100 MG CAP PO SCH ×3 (08:53→21:26)
[2019-05-26] MEDS: Finasteride 5 MG TAB PO SCH ×2 (08:53→21:26)
[2019-05-26] MEDS: traMADol HCl 50 MG TAB PO SCH ×2 (08:54→21:27)
[2019-05-26] MEDS: Tamsulosin HCl 0.4 MG CAP PO SCH (08:54)
[2019-05-26] MEDS: Amlodipine 10 MG TAB PO SCH (08:56)
[2019-05-26] MEDS ORDERED: Sodium Chloride 0.9% 500 ML IV SCH (09:00)
[2019-05-26] MEDS: Polyethylene Glycol 3350 17 GM Packet PO SCH (09:00)
[2019-05-26] MEDS ORDERED: Amlodipine 10 MG TAB PO SCH ×2 (09:00→09:29)
[2019-05-26] MEDS ORDERED: Furosemide 40 MG TAB PO SCH (09:00)
[2019-05-26] MEDS ORDERED: Spironolactone 25 MG TAB PO SCH (09:00)
[2019-05-26] MEDS ORDERED: Hydrocortisone Sod Succ/PF 100 mg/2 ml Vial IVP ONE (09:00)
[2019-05-26] MEDS ORDERED: Pantoprazole 40 MG GRANULES PACKET PO SCH (09:00)
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
[2019-05-26] MEDS: Spironolactone 25 MG TAB PO SCH (09:54)
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
[2019-05-26] MEDS: Atorvastatin Calcium 40 MG TAB PO SCH (21:26)
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
[2019-05-27] MEDS: Acetaminophen 500 MG TAB PO SCH ×2 (06:20→11:49)
[2019-05-27] MEDS: traMADol HCl 50 MG TAB PO SCH (08:42)
[2019-05-27] MEDS: Gabapentin 100 MG CAP PO SCH ×2 (08:43→16:57)
[2019-05-27] MEDS: Finasteride 5 MG TAB PO SCH (08:43)
[2019-05-27] MEDS: Polyethylene Glycol 3350 17 GM Packet PO SCH (08:44)
[2019-05-27] MEDS: Tamsulosin HCl 0.4 MG CAP PO SCH (08:44)
[2019-05-27] MEDS: Senokot S 8.6-50 MG TAB PO SCH (08:44)
[2019-05-27] MEDS: Spironolactone 25 MG TAB PO SCH (08:44)
[2019-05-27] MEDS: Insulin Regular 300 UNITS/3 ML VIAL SC PRN ×2 (11:49→16:57)
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
[2019-05-27 15:52] VITALS: BP 126/72; TEMP 98.5
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
== END 2019-05-27 18:21 | DRG 83 ==
LOC: ERS 16:46 → 2SE 21:15 → SURG A 05-25 23:36
PROVIDERS: ADMIT Surgery; ATTEND Surgery
DX: S06.6X9A Traumatic subarachnoid hemorrhage with loss of consciousness of unspecified duration, initial encounter (principal); S22.20XA Unspecified fracture of sternum, initial encounter for closed fracture; S22.079A Unspecified fracture of T9-T10 vertebra, initial encounter for closed fracture; J90 Pleural effusion, not elsewhere classified; T14.8XXA Other injury of unspecified body region, initial encounter; C61 Malignant neoplasm of prostate; E11.22 Type 2 diabetes mellitus with diabetic chronic kidney disease; I12.9 Hypertensive chronic kidney disease with stage 1 through stage 4 chronic kidney disease, or unspecified chronic kidney disease; N18.9 Chronic kidney disease, unspecified; R33.9 Retention of urine, unspecified; S20.219A Contusion of unspecified front wall of thorax, initial encounter; I48.91 Unspecified atrial fibrillation; Z79.4 Long term (current) use of insulin; Z90.49 Acquired absence of other specified parts of digestive tract; W22.11XA Striking against or struck by driver side automobile airbag, initial encounter; Z79.01 Long term (current) use of anticoagulants; Y93.I9 Activity, other involving external motion; Y92.415 Exit ramp or entrance ramp of street or highway as the place of occurrence of the external cause
CPT/HCPCS: 10140; 36415; 36416; 70450; 71045; 71260; 72125; 74177; 80048; 80053; 80307; 81003; 81015; 82533; 82553; 83735; 84100; 84484; 85007; 85025; 85027; 85610; 85730; 90714; 93005; 93306; 96374; 96375; 96376; G0390; J1720; J1815; J2001; J2270; J2405; Q9967

== ENCOUNTER 2019-07-02 16:44 | Inpatient (IN) | payer MEDICARE ==
[2019-07-02 17:37] LABS: #Basophils 0.1 thou/uL (0.0-0.2); #Eosinphils 0.1 thou/uL (0.0-0.7); #Lymphocytes 0.4 thou/uL (1.20-3.40); #Monocytes 0.7 thou/uL (0.11-0.59); #Neutrophils 5.3 thou/uL (1.40-6.50); %Basophils 1.8 % (0.0-1.0); %Eosinophils 0.9 % (0.0-10.0); %Lymphocytes 5.5 % (21.0-51.0); %Monocytes 11.1 % (0.0-10.0); %Neutrophils 80.7 % (42.0-75.0); Mean Corpuscular HGB CONC 33.9 g/dL (32.0-36.0); Mean Corpuscular Hemoglobin 30.5 pg (27.0-31.0); Mean Corpuscular Volume 89.9 fL (78.0-98.0); Mean Platelet Volume 8.6 fL (7.4-10.4); Platelet Count 149 thou/uL (130-400); RBC Distribution Width 13.3 % (11.5-14.5); Red Blood Cell (RBC) Count 4.58 mill/uL (4.70-6.10); White Blood Cell (WBC) Count 6.6 thou/uL (4.8-10.8)
[2019-07-02 18:03] LABS: ALT (SGPT) 21 U/L (8-55); AST (SGOT) 21 U/L (5-34); Albumin 4.1 g/dL (3.4-4.8); Alkaline Phosphatase 99 U/L (40-110); Anion Gap 14 mmol/L (10-20); BUN (Urea Nitrogen) 25 mg/dL (8.4-25.7); Bilirubin, Total 0.8 mg/dL (0.2-1.2); Calc. Creatinine Clearance 0 mL/min (70-130); Calcium 9.4 mg/dL (7.8-10.44); Carbon Dioxide 27 mmol/L (23-31); Chloride 98 mmol/L (98-107); Estimated GFR-MDRD 56; Globulin 3.4 g/dL (2.4-3.5); Glucose 254 mg/dL (83-110); Potassium 3.9 mmol/L (3.5-5.1); Protein, Total 7.5 g/dL (5.8-8.1); Sodium 135 mmol/L (136-145)
--- NOTE | 2019-07-02 18:52 | CT ---
CT BRAIN NONCONTRAST: DATE: 07/02/2019 HISTORY: 83-year-old male with altered mental status. COMPARISON: 05/25/2019 FINDINGS: There is no evidence of acute intra-axial or extra-axial hemorrhage. There is no midline shift or any other mass effect. There is no extra-axial fluid collection. There is no evidence of obstructive hydrocephalus. Calvarium is intact. The small focus of hemorrhage along the left cerebral convexity, has now resolved. There is a questionable new finding of a tiny faint hypodensity at the anterior limb of the right internal capsule. IMPRESSION: 1. Questionable acute or subacute tiny lacunar infarction in anterior limb of right internal capsule. 2. No acute intracranial hemorrhage, mass effect, or obstructive hydrocephalus.
[2019-07-02 19:38] LABS: Bilirubin Negative (Negative); Blood, Urine Negative (Negative); Clarity Turbid (Clear); Glucose, Urine (Dipstick) 70 mg/dL (Negative); Leukocyte 250 Leu/uL (Negative); Nitrite Negative (Negative); Protein, Urine (Dipstick) 30 mg/dL (Neg-Trace); RBC/HPF 0-3 HPF (0-3); Squamous Epithelial None Seen HPF (0-3)
[2019-07-02 19:39] LABS: Bacteria/HPF 1+ HPF (None Seen)
[2019-07-02] MEDS ORDERED: Aspirin Chewable 81 MG TAB ONE (20:21)
[2019-07-02] MEDS ORDERED: Acetaminophen 650 MG Suppository PR PRN (22:04)
[2019-07-02] MEDS ORDERED: Acetaminophen 325 MG TAB PO PRN (22:04)
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
[2019-07-02] MEDS ORDERED: Dextrose 5% in Water 1,000 ML IV PRN (23:12)
[2019-07-02] MEDS ORDERED: HumaLOG 300 UNITS/3 ML VIAL SC PRN (23:12)
[2019-07-02] MEDS ORDERED: Dextrose 50% Abboject 50 ML SYRINGE SLOW IVP PRN (23:12)
[2019-07-03 00:19] VITALS: BMI 31.6
[2019-07-03] MEDS: cefTRIAXone\\ROCEPHIN 2 GM in Sodium Chloride 0.9% 100 ML IVPB SCH ×2 (00:53→23:11)
[2019-07-03 04:48] LABS: #Eosinphils 0.1 thou/uL (0.0-0.7); #Lymphocytes 0.6 thou/uL (1.20-3.40); #Monocytes 0.9 thou/uL (0.11-0.59); #Neutrophils 5.3 thou/uL (1.40-6.50); %Basophils 0.5 % (0.0-1.0); %Eosinophils 1.3 % (0.0-10.0); %Monocytes 13.3 % (0.0-10.0); Hemoglobin 12.9 g/dL (14.0-18.0); Mean Corpuscular Hemoglobin 30.5 pg (27.0-31.0); Mean Corpuscular Volume 89.7 fL (78.0-98.0); Mean Platelet Volume 8.6 fL (7.4-10.4); Platelet Count 151 thou/uL (130-400); RBC Distribution Width 13.4 % (11.5-14.5); Red Blood Cell (RBC) Count 4.22 mill/uL (4.70-6.10)
[2019-07-03 05:23] LABS: Anion Gap 12 mmol/L (10-20); BUN (Urea Nitrogen) 19 mg/dL (8.4-25.7); Calc. Creatinine Clearance 87 mL/min (70-130); Calcium 9.1 mg/dL (7.8-10.44); Carbon Dioxide 26 mmol/L (23-31); Cardiac Risk 2.8 (Less than 4.5); Chloride 102 mmol/L (98-107); Cholesterol 113 mg/dl (< 200 Desired); Estimated GFR-MDRD 80; Glucose 94 mg/dL (83-110); HDL Cholesterol 41 mg/dL (>60 Neg Risk); LDL Cholesterol, Calculated 57 mg/dL; Potassium 3.7 mmol/L (3.5-5.1); Sodium 136 mmol/L (136-145); Triglycerides 74 mg/dL (Less than 150)
--- NOTE | 2019-07-03 07:51 | ULT ---
BILATERAL CAROTID DUPLEX ULTRASOUND: HISTORY: TIA, CVA. TECHNIQUE: Kaur scale ultrasound with color flow and spectral Doppler imaging of the extracranial carotid artery systems was performed bilaterally. FINDINGS: There is mild plaque formation bilaterally. The peak systolic velocity in the right ICA measures 76 cm/s with an end-diastolic velocity of 20 cm/ s and a systolic ratio of 0.75. The peak systolic velocity in the left ICA measures 51 cm/s with an end-diastolic velocity of 10 cm/s and a systolic ratio of 0.67. There is antegrade flow in both vertebral arteries. IMPRESSION: No evidence of hemodynamically significant stenosis in either internal carotid artery. POS: MZA
[2019-07-03] MEDS: Aspirin 81 mg Enteric Coated Tablet PO SCH ×2 (08:34→09:00)
[2019-07-03] MEDS ORDERED: Magnevist 469MG/ML 20 ML VIAL ONE (08:46)
[2019-07-03] MEDS: HumaLOG 300 UNITS/3 ML VIAL SC PRN (12:24)
[2019-07-03] MEDS ORDERED: Apixaban 5 MG TAB PO SCH (12:30)
--- NOTE | 2019-07-03 12:58 | PDOC.HOSPP ---
- Subjective Encounter Date: 07/03/19 Encounter Time: 10:30 Subjective: pt is not verbalizing much - alert x 1 only. on awakening, and then he goes back to deep snoring. - Objective Vital Signs & Weight: Vital Signs (12 hours) Temp Pulse Resp BP Pulse Ox 07/03/19 11:23 98.2 F 72 20 136/67 97 07/03/19 07:29 98.6 F 75 20 137/66 94 L 07/03/19 03:25 97.4 F L 75 16 143/84 H 94 L Weight Weight 226 lb 9.6 oz I&O: 07/02/19 07/03/19 07/04/19 06:59 06:59 06:59 Output Total 50 Balance -50 Result Diagrams: 07/03/19 04:37 07/03/19 04:37 Additional Labs: Accuchecks 07/03/19 07/03/19 10:39 05:51 POC Glucose 265 H 90 Hospitalist ROS - Medication Medications: Active Medications Generic Name Dose Route Start Last Admin Trade Name Carolina PRN Reason Stop Dose Admin Aspirin 81 mg 07/03/19 09:00 07/03/19 09:00 Ecotrin PO Not Given DAILY CARL Ceftriaxone Sodium 2 gm/ 100 mls @ 200 mls/hr 07/02/19 23:00 07/03/19 00:53 Sodium Chloride IVPB 100 mls 2300 CARL Administration Insulin Human Lispro 0 units 07/02/19 23:12 07/03/19 12:24 Humalog SC 4 unit .MILD SLIDING SCALE PRN Administration Mild Correctional Scale Sodium Chloride 10 ml 07/03/19 09:00 07/03/19 08:35 Flush - Normal Saline IVF 10 ml Q12HR CARL Administration - Exam General - other findings: sleepy but appears NOn-toxi Eye: PERRL ENT: normocephalic atraumatic Neck: supple Heart: RRR Respiratory: CTAB, normal chest expansion Gastrointestinal: normal bowel sounds, no palpable masses Neurological - other findings: no facial droop Hosp A/P - Plan roblem (1) metAbolic encephlopathy -- d/t UTI vs.. other Code(s): R41.0 - DISORIENTATION, UNSPECIFIED Status: Acute (2) UTI (urinary tract infection) Status: Acute --on CTX - fw cx result CVA CT head showed subacute/acute lacunar infarct, tiny in size. Neuro consulted. Recent Echo done in 05/2019. - prob triggered by UTI -follow on MRI --ASA, lipior and added low dose acei -carotid doppler without stenosis. -stroke work up initiated. - HLP with LDL of 57 - on lipitor (3) Hematuria Code(s): R31.9 - HEMATURIA, UNSPECIFIED Status: Acute - i dont see any hematuria, microscopic in the ua - if it is francisco - need to hold eliquis. (4) History of prostate cancer (5) BPH (benign prostatic hyperplasia) (6) Chronic anticoagulation with eliquis (7) Diabetes type 2, controlled lantus and SSI (8) Dyslipidemia Code(s): E78.5 - HYPERLIPIDEMIA, UNSPECIFIED Status: Chronic (9) GERD (gastroesophageal reflux disease) Code(s): K21.9 - GASTRO-ESOPHAGEAL REFLUX DISEASE WITHOUT ESOPHAGITIS Status: Chronic (10) Hypertension - allow permissive HTN x 24hrs -added low dose acei (11) Paroxysmal atrial fibrillation - on eliquis.
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
--- NOTE | 2019-07-03 14:20 | MRI ---
MRI OF BRAIN WITH AND WITHOUT CONTRAST: INDICATION: Assess for stroke. Question subacute or acute lacunar infarct in the anterior limb of the right inte rnal capsule on CT of 07/02/2019. FINDINGS: Motion artifact degrades all sequences. Cortical volume loss. Ventricles have normal size and position considering the degree of volume loss . There is no evidence of restricted diffusion. No evidence of lacunar infarct identified. No evidenc e of cortical infarct. No mass or edema. Very mild ischemic white matter change. The postcontrast images are especially degraded from motion artifact; however, no abnormal enhancemen t identified. The intracranial internal carotid arteries and proximal cerebral arteries demonstrate flow voids. IMPRESSION: 1. No evidence of acute infarct. No other acute process. POS: C
[2019-07-03] MEDS: Apixaban 5 MG TAB PO SCH (20:56)
[2019-07-03] MEDS ORDERED: Atorvastatin Calcium 40 MG TAB PO SCH (21:00)
[2019-07-04 04:34] LABS: Hemoglobin 12.5 g/dL (14.0-18.0); Platelet Count 161 thou/uL (130-400)
[2019-07-04] MEDS: Apixaban 5 MG TAB PO SCH (08:36)
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
[2019-07-04] MEDS ORDERED: Lisinopril 10 MG TAB PO SCH (09:00)
[2019-07-04 11:28] VITALS: BP 150/73; TEMP 98.9
[2019-07-04] MEDS: HumaLOG 300 UNITS/3 ML VIAL SC PRN (12:14)
== END 2019-07-04 13:05 | DRG 689 ==
LOC: ERS 16:44 → 2SE 22:03
PROVIDERS: ADMIT Emergency Medicine; ATTEND Emergency Medicine
DX: N39.0 Urinary tract infection, site not specified (principal); G92 Toxic encephalopathy; E87.1 Hypo-osmolality and hyponatremia; N40.1 Benign prostatic hyperplasia with lower urinary tract symptoms; I10 Essential (primary) hypertension; K21.9 Gastro-esophageal reflux disease without esophagitis; E66.9 Obesity, unspecified; I07.1 Rheumatic tricuspid insufficiency; E11.21 Type 2 diabetes mellitus with diabetic nephropathy; I48.0 Paroxysmal atrial fibrillation; E78.5 Hyperlipidemia, unspecified; Z68.31 Body mass index [BMI] 31.0-31.9, adult; Z90.49 Acquired absence of other specified parts of digestive tract; Z79.01 Long term (current) use of anticoagulants; Z79.899 Other long term (current) drug therapy; Z79.4 Long term (current) use of insulin; Z85.46 Personal history of malignant neoplasm of prostate; R31.29 Other microscopic hematuria; R33.8 Other retention of urine
CPT/HCPCS: 36415; 36416; 51701; 70450; 70553; 80048; 80053; 80061; 81003; 81015; 82565; 83880; 85014; 85018; 85025; 85049; 87086; 93005; 93880; A9579; J0696; J3490

== ENCOUNTER 2019-10-22 14:17 | Emergency (ER) | payer MEDICARE ==
--- NOTE | 2019-10-22 15:02 | RAD ---
XR Chest 1 View Portable History: Malaise Comparison: Radiograph May 24, 2019 Findings: Lungs are clear. No pneumothorax. No effusion. Low-grade scarring left lung base. No acute osseous abnormality. Heart size mildly enlarged. Impression: No acute intrathoracic abnormality.
[2019-10-22 15:36] LABS: #Eosinphils 0.5 thou/uL (0.0-0.7); #Lymphocytes 0.8 thou/uL (1.20-3.40); #Monocytes 0.9 thou/uL (0.11-0.59); #Neutrophils 7.4 thou/uL (1.40-6.50); %Basophils 0.4 % (0.0-1.0); %Eosinophils 5.3 % (0.0-10.0); %Monocytes 9.1 % (0.0-10.0); %Neutrophils 77.3 % (42.0-75.0); Mean Corpuscular HGB CONC 31.9 g/dL (32.0-36.0); Mean Corpuscular Hemoglobin 29.1 pg (27.0-31.0); Mean Corpuscular Volume 91.2 fL (78.0-98.0); Mean Platelet Volume 8.7 fL (7.4-10.4); Platelet Count 184 thou/uL (130-400); Red Blood Cell (RBC) Count 4.82 mill/uL (4.70-6.10); White Blood Cell (WBC) Count 9.6 thou/uL (4.8-10.8)
[2019-10-22 15:58] LABS: Bacteria/HPF 1+ HPF (None Seen); Bilirubin Negative (Negative); Blood, Urine Negative (Negative); Clarity Clear (Clear); Glucose, Urine (Dipstick) Normal (Negative); Ketone, Urine Negative (Negative); Leukocyte 250 Leu/uL (Negative); Nitrite Negative (Negative); Protein, Urine (Dipstick) Negative (Neg-Trace); RBC/HPF 0-3 HPF (0-3); Specific Gravity, Urine 1.011 (1.002-1.036); Squamous Epithelial None Seen HPF (0-3); Urobilinogen Normal mg/dL (Less than 2); WBC/HPF 21-50 HPF (0-3); pH, Urine 5.5 (5.0-9.0)
[2019-10-22 16:01] LABS: ALT (SGPT) 18 U/L (8-55); AST (SGOT) 16 U/L (5-34); Alkaline Phosphatase 89 U/L (40-110); Anion Gap 14 mmol/L (10-20); BUN (Urea Nitrogen) 32 mg/dL (8.4-25.7); Bilirubin, Total 0.5 mg/dL (0.2-1.2); Calc. Creatinine Clearance 0 mL/min (70-130); Calcium 9.7 mg/dL (7.8-10.44); Carbon Dioxide 23 mmol/L (23-31); Chloride 101 mmol/L (98-107); Estimated GFR-MDRD 43; Globulin 3.7 g/dL (2.4-3.5); Glucose 227 mg/dL (83-110); Potassium 4.3 mmol/L (3.5-5.1); Protein, Total 7.7 g/dL (5.8-8.1); Sodium 134 mmol/L (136-145)
--- NOTE | 2019-10-22 16:48 | CT ---
EXAM: CT brain without contrast HISTORY: Not feeling well; altered mental status COMPARISON: 07/02/2019 TECHNIQUE: Multiple contiguous axial images were obtained and a CT of the brain without contrast. FINDINGS: The brain is normal in morphology and attenuation without focal lesions or confluent areas of infarction. There is no evidence of hydrocephalus, intracranial hemorrhage, or extra-axial fluid collection. The calvarium and overlying soft tissues are unremarkable. The visualized paranasal sinuses and masto id air cells are well aerated. IMPRESSION: No evidence of acute intracranial abnormality
== END 2019-10-22 18:07 | disposition home or self-care (01) ==
LOC: ERS 14:17
DX: E86.0 Dehydration (principal); E11.9 Type 2 diabetes mellitus without complications; I10 Essential (primary) hypertension; K21.9 Gastro-esophageal reflux disease without esophagitis; N40.0 Benign prostatic hyperplasia without lower urinary tract symptoms; I48.91 Unspecified atrial fibrillation; Z79.899 Other long term (current) drug therapy; Z79.01 Long term (current) use of anticoagulants
CPT/HCPCS: 36415; 70450; 71045; 80053; 81003; 81015; 84443; 85025; 87086; 93005; 96360

== ENCOUNTER 2019-10-26 11:08 | Outpatient (CLI) | payer MEDICARE ==
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
== END 2019-10-26 11:09 | disposition home or self-care (01) ==
LOC: TBSIIMAG 11:08
PROVIDERS: ATTEND Surgery
DX: S06.6X9A Traumatic subarachnoid hemorrhage with loss of consciousness of unspecified duration, initial encounter (principal); M47.814 Spondylosis without myelopathy or radiculopathy, thoracic region
CPT/HCPCS: 72070

== ENCOUNTER 2020-01-17 15:57 | Emergency (ER) | payer MEDICARE ==
--- NOTE | 2020-01-17 16:43 | RAD ---
XR Ankle Lt 3 View STANDARD History: Pain Comparison: None. Findings: Chronic exostosis of the lateral aspect distal fibula. Old deltoid ligament injury. Severe syndesmosis degenerative disease as well as high-grade tibiotalar degeneration. Developing hindfoot valgus and lateral hindfoot impingement. Impression: Severe degenerative disease. No acute fracture or malalignment.
--- NOTE | 2020-01-17 16:55 | CT ---
CT Brain WO Con History: Fall Comparison: CT October 2019 Findings: No acute hemorrhage or infarct. Incidental note is made of cavum septa lucidum and. No midline shift. No mass effect. Calvarium is intact. Mild mucosal thickening of the ethmoids. Impression: Chronic findings. No acute intracranial abnormality.
== END 2020-01-17 17:50 | disposition home or self-care (01) ==
LOC: ERS 15:57
DX: S09.90XA Unspecified injury of head, initial encounter (principal); M25.572 Pain in left ankle and joints of left foot; E11.9 Type 2 diabetes mellitus without complications; N40.0 Benign prostatic hyperplasia without lower urinary tract symptoms; K21.9 Gastro-esophageal reflux disease without esophagitis; I10 Essential (primary) hypertension; I48.91 Unspecified atrial fibrillation; Z85.46 Personal history of malignant neoplasm of prostate; Z85.828 Personal history of other malignant neoplasm of skin; Z79.899 Other long term (current) drug therapy; Z79.4 Long term (current) use of insulin; Z79.01 Long term (current) use of anticoagulants; W19.XXXA Unspecified fall, initial encounter
CPT/HCPCS: 70450

== ENCOUNTER 2020-08-16 10:54 | Emergency (ER) | payer MEDICARE ==
[2020-08-16 17:11] LABS: Bacteria/HPF 4+ HPF (None Seen); Bilirubin Negative (Negative); Blood, Urine 2+ (Negative); Clarity Extra Turbid (Clear); Glucose, Urine (Dipstick) Normal (Negative); Ketone, Urine Negative (Negative); Leukocyte 500 Leu/uL (Negative); Nitrite 2+ (Negative); Protein, Urine (Dipstick) 30 mg/dL (Neg-Trace); RBC/HPF 21-50 HPF (0-3); Specific Gravity, Urine 1.011 (1.002-1.036); Squamous Epithelial 0-3 HPF (0-3); Transitional Epithelial 0-3 HPF (None Seen); Urobilinogen Normal mg/dL (Less than 2); WBC/HPF Greater than 50 HPF (0-3)
== END 2020-08-16 20:45 | disposition home or self-care (01) ==
LOC: ERS 10:54
DX: T83.091A Other mechanical complication of indwelling urethral catheter, initial encounter (principal); N39.0 Urinary tract infection, site not specified; E11.9 Type 2 diabetes mellitus without complications; I10 Essential (primary) hypertension; I48.91 Unspecified atrial fibrillation; K21.9 Gastro-esophageal reflux disease without esophagitis; N40.0 Benign prostatic hyperplasia without lower urinary tract symptoms; Z79.4 Long term (current) use of insulin; Z79.01 Long term (current) use of anticoagulants; Z79.899 Other long term (current) drug therapy
CPT/HCPCS: 81003; 81015; 87077; 87086; 87186; 99283

== ENCOUNTER 2020-08-17 12:51 | Emergency (ER) | payer MEDICARE ==
[2020-08-17 14:12] LABS: #Lymphocytes 0.4 thou/uL (1.20-3.40); #Monocytes 1.3 thou/uL (0.11-0.59); #Neutrophils 11.9 thou/uL (1.40-6.50); %Eosinophils 0.2 % (0.0-10.0); %Lymphocytes 3.2 % (21.0-51.0); %Monocytes 9.4 % (0.0-10.0); %Neutrophils 87.2 % (42.0-75.0); Hemoglobin 14.5 g/dL (14.0-18.0); Mean Corpuscular HGB CONC 33.5 g/dL (32.0-36.0); Mean Corpuscular Hemoglobin 30.7 pg (27.0-31.0); Mean Corpuscular Volume 91.7 fL (78.0-98.0); Platelet Count 177 thou/uL (130-400); RBC Distribution Width 12.3 % (11.5-14.5); Red Blood Cell (RBC) Count 4.74 mill/uL (4.70-6.10); White Blood Cell (WBC) Count 13.7 thou/uL (4.8-10.8)
[2020-08-17 14:33] LABS: ALT (SGPT) 15 U/L (8-55); AST (SGOT) 12 U/L (5-34); Albumin 3.6 g/dL (3.4-4.8); Alkaline Phosphatase 75 U/L (40-110); Anion Gap 12 mmol/L (10-20); BUN (Urea Nitrogen) 27 mg/dL (8.4-25.7); Bilirubin, Total 0.8 mg/dL (0.2-1.2); Calc. Creatinine Clearance 0 mL/min (70-130); Calcium 9.4 mg/dL (7.8-10.44); Carbon Dioxide 26 mmol/L (23-31); Chloride 99 mmol/L (98-107); Globulin 3.5 g/dL (2.4-3.5); Glucose 278 mg/dL (83-110); Lipase 14 U/L (8-78); Potassium 4.3 mmol/L (3.5-5.1); Protein, Total 7.1 g/dL (5.8-8.1); Sodium 133 mmol/L (136-145)
[2020-08-17 14:59] LABS: Bacteria/HPF 4+ HPF (None Seen); Bilirubin Negative (Negative); Blood, Urine Trace (Negative); Clarity Clear (Clear); Glucose, Urine (Dipstick) Normal (Negative); Ketone, Urine Negative (Negative); Leukocyte 500 Leu/uL (Negative); Nitrite 2+ (Negative); Protein, Urine (Dipstick) 10 mg/dL (Neg-Trace); RBC/HPF 0-3 HPF (0-3); Specific Gravity, Urine 1.019 (1.002-1.036); Squamous Epithelial None Seen HPF (0-3); Urobilinogen Normal mg/dL (Less than 2); WBC/HPF Greater than 50 HPF (0-3); pH, Urine 5.5 (5.0-9.0)
[2020-08-17] MEDS ORDERED: Lidocaine 1% PF 5 ML VIAL ONE (15:24)
[2020-08-17] MEDS ORDERED: cefTRIAXone\\ROCEPHIN 1 GM VIAL ONE (15:24)
[2020-08-17] MEDS ORDERED: Ondansetron PF 4 MG/2 ML Vial ONE (18:12)
[2020-08-17] MEDS ORDERED: Ondansetron ODT 4 MG TAB ONE (18:13)
== END 2020-08-17 19:08 | disposition home or self-care (01) ==
LOC: ERS 12:51
DX: N39.0 Urinary tract infection, site not specified (principal); M48.56XA Collapsed vertebra, not elsewhere classified, lumbar region, initial encounter for fracture; N40.0 Benign prostatic hyperplasia without lower urinary tract symptoms; E11.65 Type 2 diabetes mellitus with hyperglycemia; N17.9 Acute kidney failure, unspecified; I10 Essential (primary) hypertension; I48.91 Unspecified atrial fibrillation; Z79.01 Long term (current) use of anticoagulants; Z79.899 Other long term (current) drug therapy; Z79.4 Long term (current) use of insulin; Z85.46 Personal history of malignant neoplasm of prostate; Z85.828 Personal history of other malignant neoplasm of skin
CPT/HCPCS: 36415; 36416; 74177; 80053; 81003; 81015; 83690; 85025; 93005; 96372; J0696; J2405; Q0162; Q9967

== ENCOUNTER 2020-12-25 11:16 | Inpatient (IN) | payer MEDICARE ==
[2020-12-25] MEDS ORDERED: Lidocaine Viscous Sol 2% 15 ml UD Cup ONE ×2 (12:16→17:38)
[2020-12-25] MEDS ORDERED: Fentanyl 100 MCG/2 ML VIAL ONE (12:16)
[2020-12-25 12:45] LABS: Hemoglobin 15.2 g/dL (14.0-18.0); Mean Corpuscular HGB CONC 33.4 g/dL (32.0-36.0); Mean Corpuscular Volume 89.7 fL (78.0-98.0); Mean Platelet Volume 8.3 fL (7.4-10.4); Platelet Count 145 thou/uL (130-400); RBC Distribution Width 12.8 % (11.5-14.5); Red Blood Cell (RBC) Count 5.06 mill/uL (4.70-6.10); White Blood Cell (WBC) Count 4.5 thou/uL (4.8-10.8)
[2020-12-25 13:08] LABS: Band 11 % (5-11); Lymphocytes 17 % (21-51); MDiff Complete? YES; Manual Diff?? YES; Monocytes 17 % (0-10); Neutrophil 54 % (42-75); Reactive Lymphocytes 1 % (0-10)
[2020-12-25 13:09] LABS: Platelet Morphology Comment Appears Adequate; RBC Morphology Normal
[2020-12-25 14:22] LABS: Albumin 3.8 g/dL (3.4-4.8)
[2020-12-25 14:23] LABS: Chloride 103 mmol/L (98-107); Potassium 4.2 mmol/L (3.5-5.1); Sodium 135 mmol/L (136-145)
[2020-12-25 14:24] LABS: Calcium 9.2 mg/dL (7.8-10.44)
[2020-12-25 14:25] LABS: Globulin 3.1 g/dL (2.4-3.5); Protein, Total 6.9 g/dL (5.8-8.1)
[2020-12-25 14:26] LABS: Anion Gap 15 mmol/L (10-20); Bilirubin, Total 0.7 mg/dL (0.2-1.2); Carbon Dioxide 21 mmol/L (23-31)
[2020-12-25 14:27] LABS: Alkaline Phosphatase 67 U/L (40-110)
[2020-12-25 14:28] LABS: BUN (Urea Nitrogen) 23 mg/dL (8.4-25.7); Calc. Creatinine Clearance 0 mL/min (70-130)
[2020-12-25 14:29] LABS: AST (SGOT) 24 U/L (5-34); Glucose 201 mg/dL (83-110)
[2020-12-25 14:30] LABS: ALT (SGPT) 22 U/L (8-55)
[2020-12-25 14:37] LABS: Clarity Cloudy (Clear)
[2020-12-25 14:38] LABS: Bacteria/HPF None Seen HPF (None Seen); Bilirubin Unable to Interpret (Negative); Blood, Urine Unable to Interpret (Negative); Glucose, Urine (Dipstick) Unable to Interpret mg/dL (Negative); Ketone, Urine Unable to Interpret mg/dL (Negative); Leukocyte Unable to Interpret Leu/uL (Negative); Nitrite Unable to Interpret (Negative); Protein, Urine (Dipstick) Unable to Interpret mg/dL (Neg-Trace); RBC/HPF Greater than 50 HPF (0-3); Urobilinogen UNABLE TO INTERPRET mg/dL (Less than 2); WBC/HPF 0-3 HPF (0-3)
[2020-12-25 16:16] LABS: INR-International Normal Ratio 1.3; PTT 35.1 sec (22.9-36.1); Prothrombin Time 16.3 sec (12.0-14.7)
[2020-12-25] MEDS ORDERED: cefTRIAXone\\ROCEPHIN 2 GM VIAL ONE (16:25)
[2020-12-25] MEDS ORDERED: Mag-Al 1200 mg/1200 mg/30 ML UDCUP ONE (17:38)
[2020-12-25] MEDS ORDERED: HYDROcodone/Acetaminophen 5/325 mg Tablet PO PRN (19:28)
[2020-12-25] MEDS ORDERED: Dextrose 50% Abboject 50 ML SYRINGE SLOW IVP PRN (19:55)
[2020-12-25] MEDS ORDERED: Dextrose 5% in Water 1,000 ML IV PRN (19:55)
[2020-12-25 21:16] LABS: SARS-CoV-2 NAA Rapid Test DETECTED (NotDetected)
[2020-12-26 02:45] VITALS: BMI 29.5
[2020-12-26] MEDS ORDERED: Calcium Carbonate 500 MG ChewTAB PO PRN (03:55)
[2020-12-26 06:17] LABS: #Lymphocytes 0.8 thou/uL (1.20-3.40); #Monocytes 0.7 thou/uL (0.11-0.59); #Neutrophils 5.2 thou/uL (1.40-6.50); %Basophils 0.1 % (0.0-1.0); %Eosinophils 0.3 % (0.0-10.0); %Neutrophils 76.6 % (42.0-75.0); Hemoglobin 14.3 g/dL (14.0-18.0); Mean Corpuscular HGB CONC 32.5 g/dL (32.0-36.0); Mean Corpuscular Hemoglobin 29.4 pg (27.0-31.0); Mean Corpuscular Volume 90.5 fL (78.0-98.0); Mean Platelet Volume 8.3 fL (7.4-10.4); Platelet Count 155 thou/uL (130-400); RBC Distribution Width 12.7 % (11.5-14.5); Red Blood Cell (RBC) Count 4.86 mill/uL (4.70-6.10); White Blood Cell (WBC) Count 6.7 thou/uL (4.8-10.8)
[2020-12-26 06:30] LABS: Hemoglobin A1c 8.2 % (4.0-6.0)
[2020-12-26 06:44] LABS: Anion Gap 13 mmol/L (10-20); BUN (Urea Nitrogen) 20 mg/dL (8.4-25.7); Calc. Creatinine Clearance 54 mL/min (70-130); Calcium 8.8 mg/dL (7.8-10.44); Carbon Dioxide 26 mmol/L (23-31); Chloride 101 mmol/L (98-107); Glucose 148 mg/dL (83-110); Potassium 4.3 mmol/L (3.5-5.1); Sodium 136 mmol/L (136-145)
[2020-12-26] MEDS ORDERED: cefTRIAXone\\ROCEPHIN 2 GM in Sodium Chloride 0.9% 100 ML IVPB SCH (16:00)
[2020-12-26] MEDS: cefTRIAXone\\ROCEPHIN 1 GM in Sodium Chloride 0.9% 100 ML IVPB SCH (16:10)
[2020-12-26] MEDS: HumaLOG 300 UNITS/3 ML VIAL SC PRN ×2 (16:11→20:32)
[2020-12-26] MEDS ORDERED: Ondansetron PF 4 MG/2 ML Vial IVP PRN (18:41)
[2020-12-26] MEDS: Atorvastatin Calcium 40 MG TAB PO SCH (20:31)
[2020-12-26] MEDS: Tamsulosin HCl 0.4 MG CAP PO SCH (20:31)
[2020-12-26] MEDS: Amlodipine 5 MG TAB PO SCH (20:31)
[2020-12-26] MEDS: Lantus 1000 UNITS/10 ML VIAL SC SCH (21:42)
[2020-12-27] MEDS: Acetaminophen 325 MG TAB PO PRN ×2 (01:15→21:17)
[2020-12-27] MEDS: HumaLOG 300 UNITS/3 ML VIAL SC PRN ×4 (06:22→21:18)
[2020-12-27] MEDS: Amlodipine 5 MG TAB PO SCH ×2 (09:28→21:17)
[2020-12-27] MEDS: Furosemide 20 MG TAB PO SCH (09:29)
[2020-12-27] MEDS: Spironolactone 25 MG TAB PO SCH (09:29)
[2020-12-27] MEDS: cefTRIAXone\\ROCEPHIN 1 GM in Sodium Chloride 0.9% 100 ML IVPB SCH (16:18)
[2020-12-27] MEDS: Lantus 1000 UNITS/10 ML VIAL SC SCH (20:32)
[2020-12-27] MEDS ORDERED: Dextrose 5% in Water 1,000 ML IV PRN (20:39)
[2020-12-27] MEDS ORDERED: Dextrose 50% Abboject 50 ML SYRINGE SLOW IVP PRN (20:39)
[2020-12-27] MEDS: Atorvastatin Calcium 40 MG TAB PO SCH (21:17)
[2020-12-27] MEDS: Tamsulosin HCl 0.4 MG CAP PO SCH (21:17)
[2020-12-28] MEDS: Metoclopramide HCl 10 MG/2 ML VIAL IVP PRN ×2 (00:25→15:41)
[2020-12-28] MEDS: HumaLOG 300 UNITS/3 ML VIAL SC PRN ×4 (05:12→21:00)
[2020-12-28] MEDS: Spironolactone 25 MG TAB PO SCH (08:35)
[2020-12-28] MEDS: Furosemide 20 MG TAB PO SCH (08:35)
[2020-12-28] MEDS: Amlodipine 5 MG TAB PO SCH ×2 (08:35→20:57)
[2020-12-28 09:17] LABS: #Lymphocytes 1.1 thou/uL (1.20-3.40); #Neutrophils 5.1 thou/uL (1.40-6.50); %Basophils 0.1 % (0.0-1.0); %Eosinophils 0.4 % (0.0-10.0); %Lymphocytes 15.4 % (21.0-51.0); %Neutrophils 70.2 % (42.0-75.0); Hemoglobin 13.8 g/dL (14.0-18.0); Mean Corpuscular HGB CONC 32.9 g/dL (32.0-36.0); Mean Corpuscular Hemoglobin 29.8 pg (27.0-31.0); Mean Corpuscular Volume 90.4 fL (78.0-98.0); Mean Platelet Volume 8.3 fL (7.4-10.4); Platelet Count 180 thou/uL (130-400); RBC Distribution Width 12.5 % (11.5-14.5); Red Blood Cell (RBC) Count 4.64 mill/uL (4.70-6.10); White Blood Cell (WBC) Count 7.3 thou/uL (4.8-10.8)
[2020-12-28 10:19] LABS: Anion Gap 12 mmol/L (10-20); BUN (Urea Nitrogen) 24 mg/dL (8.4-25.7); Calc. Creatinine Clearance 62 mL/min (70-130); Calcium 8.8 mg/dL (7.8-10.44); Carbon Dioxide 28 mmol/L (23-31); Chloride 99 mmol/L (98-107); Glucose 167 mg/dL (83-110); Potassium 4.4 mmol/L (3.5-5.1); Sodium 135 mmol/L (136-145)
[2020-12-28] MEDS: cefTRIAXone\\ROCEPHIN 1 GM in Sodium Chloride 0.9% 100 ML IVPB SCH (15:41)
[2020-12-28] MEDS: Tamsulosin HCl 0.4 MG CAP PO SCH (20:57)
[2020-12-28] MEDS: Atorvastatin Calcium 40 MG TAB PO SCH (20:57)
[2020-12-28] MEDS: Lantus 1000 UNITS/10 ML VIAL SC SCH (20:57)
[2020-12-29 07:16] LABS: Hemoglobin 13.6 g/dL (14.0-18.0); Platelet Count 182 thou/uL (130-400)
[2020-12-29] MEDS: Furosemide 20 MG TAB PO SCH (08:12)
[2020-12-29] MEDS: Amlodipine 5 MG TAB PO SCH ×2 (08:12→19:55)
[2020-12-29] MEDS: Spironolactone 25 MG TAB PO SCH (08:12)
[2020-12-29] MEDS: HumaLOG 300 UNITS/3 ML VIAL SC PRN ×2 (13:25→18:35)
[2020-12-29] MEDS: cefTRIAXone\\ROCEPHIN 1 GM in Sodium Chloride 0.9% 100 ML IVPB SCH (16:03)
[2020-12-29] MEDS: Atorvastatin Calcium 40 MG TAB PO SCH (19:55)
[2020-12-29] MEDS: Apixaban 5 MG TAB PO SCH (19:56)
[2020-12-29] MEDS: Tamsulosin HCl 0.4 MG CAP PO SCH (19:56)
[2020-12-29] MEDS: Lantus 1000 UNITS/10 ML VIAL SC SCH (19:56)
[2020-12-30] MEDS: Apixaban 5 MG TAB PO SCH ×2 (08:45→20:26)
[2020-12-30] MEDS: Amlodipine 5 MG TAB PO SCH ×2 (08:45→20:26)
[2020-12-30] MEDS: Spironolactone 25 MG TAB PO SCH (08:46)
[2020-12-30] MEDS: Furosemide 20 MG TAB PO SCH (08:46)
[2020-12-30] MEDS: HumaLOG 300 UNITS/3 ML VIAL SC PRN ×3 (14:02→20:30)
[2020-12-30] MEDS: cefTRIAXone\\ROCEPHIN 1 GM in Sodium Chloride 0.9% 100 ML IVPB SCH (16:15)
[2020-12-30] MEDS: Atorvastatin Calcium 40 MG TAB PO SCH (20:26)
[2020-12-30] MEDS: Tamsulosin HCl 0.4 MG CAP PO SCH (20:26)
[2020-12-30] MEDS: Lantus 1000 UNITS/10 ML VIAL SC SCH (20:26)
[2020-12-31] MEDS: Apixaban 5 MG TAB PO SCH ×2 (08:16→20:18)
[2020-12-31] MEDS: Furosemide 20 MG TAB PO SCH (08:16)
[2020-12-31] MEDS: Amlodipine 5 MG TAB PO SCH ×2 (08:17→20:18)
[2020-12-31] MEDS: Spironolactone 25 MG TAB PO SCH (08:22)
[2020-12-31 11:01] LABS: #Eosinphils 0.1 thou/uL (0.0-0.7); #Monocytes 0.7 thou/uL (0.11-0.59); #Neutrophils 3.6 thou/uL (1.40-6.50); %Eosinophils 1.5 % (0.0-10.0); %Lymphocytes 18.4 % (21.0-51.0); %Monocytes 12.4 % (0.0-10.0); %Neutrophils 67.7 % (42.0-75.0); Mean Corpuscular HGB CONC 32.2 g/dL (32.0-36.0); Mean Corpuscular Hemoglobin 29.2 pg (27.0-31.0); Mean Corpuscular Volume 90.6 fL (78.0-98.0); Mean Platelet Volume 8.4 fL (7.4-10.4); Platelet Count 187 thou/uL (130-400); RBC Distribution Width 12.7 % (11.5-14.5); Red Blood Cell (RBC) Count 4.79 mill/uL (4.70-6.10); White Blood Cell (WBC) Count 5.3 thou/uL (4.8-10.8)
[2020-12-31 11:36] LABS: Anion Gap 13 mmol/L (10-20); BUN (Urea Nitrogen) 24 mg/dL (8.4-25.7); Calc. Creatinine Clearance 61 mL/min (70-130); Carbon Dioxide 27 mmol/L (23-31); Chloride 97 mmol/L (98-107); Glucose 261 mg/dL (83-110); Potassium 4.1 mmol/L (3.5-5.1); Sodium 133 mmol/L (136-145)
[2020-12-31] MEDS: HumaLOG 300 UNITS/3 ML VIAL SC PRN ×3 (12:32→20:29)
[2020-12-31] MEDS: cefTRIAXone\\ROCEPHIN 1 GM in Sodium Chloride 0.9% 100 ML IVPB SCH (16:43)
[2020-12-31] MEDS: Tamsulosin HCl 0.4 MG CAP PO SCH (20:18)
[2020-12-31] MEDS: Atorvastatin Calcium 40 MG TAB PO SCH (20:18)
[2020-12-31] MEDS: Lantus 1000 UNITS/10 ML VIAL SC SCH (20:19)
[2021-01-01] MEDS: HumaLOG 300 UNITS/3 ML VIAL SC PRN ×4 (08:04→21:24)
[2021-01-01] MEDS: Furosemide 20 MG TAB PO SCH (08:05)
[2021-01-01] MEDS: Amlodipine 5 MG TAB PO SCH ×2 (08:05→21:01)
[2021-01-01] MEDS: Spironolactone 25 MG TAB PO SCH (08:05)
[2021-01-01] MEDS: Apixaban 5 MG TAB PO SCH ×2 (08:05→21:01)
[2021-01-01] MEDS: cefTRIAXone\\ROCEPHIN 1 GM in Sodium Chloride 0.9% 100 ML IVPB SCH (16:46)
[2021-01-01] MEDS ORDERED: Lantus 1000 UNITS/10 ML VIAL SC SCH (21:00)
[2021-01-01] MEDS: Tamsulosin HCl 0.4 MG CAP PO SCH (21:01)
[2021-01-01] MEDS: Atorvastatin Calcium 40 MG TAB PO SCH (21:01)
[2021-01-02] MEDS: HumaLOG 300 UNITS/3 ML VIAL SC PRN ×3 (05:53→21:04)
[2021-01-02] MEDS: Apixaban 5 MG TAB PO SCH ×2 (09:03→21:02)
[2021-01-02] MEDS: Furosemide 20 MG TAB PO SCH (09:03)
[2021-01-02] MEDS: Amlodipine 5 MG TAB PO SCH ×2 (09:04→21:02)
[2021-01-02] MEDS: Spironolactone 25 MG TAB PO SCH (09:04)
[2021-01-02] MEDS: cefTRIAXone\\ROCEPHIN 1 GM in Sodium Chloride 0.9% 100 ML IVPB SCH (16:31)
[2021-01-02] MEDS ORDERED: Lantus 1000 UNITS/10 ML VIAL SC SCH (21:00)
[2021-01-02] MEDS: Tamsulosin HCl 0.4 MG CAP PO SCH (21:02)
[2021-01-02] MEDS: Atorvastatin Calcium 40 MG TAB PO SCH (21:02)
[2021-01-03] MEDS: HumaLOG 300 UNITS/3 ML VIAL SC PRN ×4 (06:12→21:41)
[2021-01-03] MEDS: Furosemide 20 MG TAB PO SCH (08:54)
[2021-01-03] MEDS: Apixaban 5 MG TAB PO SCH ×2 (08:55→21:40)
[2021-01-03] MEDS: Spironolactone 25 MG TAB PO SCH (08:55)
[2021-01-03] MEDS: Amlodipine 5 MG TAB PO SCH ×2 (08:55→21:40)
[2021-01-03] MEDS ORDERED: Amlodipine 5 MG TAB PO SCH (09:15)
[2021-01-03] MEDS: Tamsulosin HCl 0.4 MG CAP PO SCH (21:40)
[2021-01-03] MEDS: Atorvastatin Calcium 40 MG TAB PO SCH (21:40)
[2021-01-03] MEDS: Lantus 1000 UNITS/10 ML VIAL SC SCH (21:44)
[2021-01-04] MEDS: HumaLOG 300 UNITS/3 ML VIAL SC PRN ×4 (06:00→20:25)
[2021-01-04] MEDS: Lantus 1000 UNITS/10 ML VIAL SC SCH ×2 (09:30→20:25)
[2021-01-04] MEDS: Apixaban 5 MG TAB PO SCH ×2 (09:30→20:24)
[2021-01-04] MEDS: Amlodipine 5 MG TAB PO SCH ×2 (09:30→20:24)
[2021-01-04] MEDS: Spironolactone 25 MG TAB PO SCH (09:30)
[2021-01-04] MEDS: Furosemide 20 MG TAB PO SCH (09:30)
[2021-01-04] MEDS: Atorvastatin Calcium 40 MG TAB PO SCH (20:24)
[2021-01-04] MEDS: Tamsulosin HCl 0.4 MG CAP PO SCH (20:24)
[2021-01-05] MEDS: HumaLOG 300 UNITS/3 ML VIAL SC PRN ×2 (05:49→13:37)
[2021-01-05 08:51] VITALS: BP 117/70; TEMP 98.1
[2021-01-05] MEDS: Apixaban 5 MG TAB PO SCH (08:55)
[2021-01-05] MEDS: Furosemide 20 MG TAB PO SCH (08:55)
[2021-01-05] MEDS: Spironolactone 25 MG TAB PO SCH (08:55)
[2021-01-05] MEDS: Amlodipine 5 MG TAB PO SCH (08:55)
[2021-01-05] MEDS: Lantus 1000 UNITS/10 ML VIAL SC SCH (08:56)
== END 2021-01-05 15:34 | DRG 698 ==
LOC: ERS 11:16 → SURG A 17:51 → T4-B 12-27 01:06 → OBSVTOIN 12-27 11:04
PROVIDERS: ADMIT Internal Medicine; ATTEND Internal Medicine
PROC: 0T2BX0Z Change Drainage Device in Bladder, External Approach (ICD-10-PCS; principal; 2020-12-25)
PROC: 3E1K78Z Irrigation of Genitourinary Tract using Irrigating Substance, Via Natural or Artificial Opening (ICD-10-PCS; 2020-12-25)
PROC: 8E0ZXY6 Isolation (ICD-10-PCS; 2020-12-25)
DX: T83.511A Infection and inflammatory reaction due to indwelling urethral catheter, initial encounter (principal); U07.1 COVID-19; G93.41 Metabolic encephalopathy; R31.0 Gross hematuria; N39.0 Urinary tract infection, site not specified; E78.5 Hyperlipidemia, unspecified; K21.9 Gastro-esophageal reflux disease without esophagitis; I48.0 Paroxysmal atrial fibrillation; N31.9 Neuromuscular dysfunction of bladder, unspecified; N40.1 Benign prostatic hyperplasia with lower urinary tract symptoms; R33.8 Other retention of urine; F03.90 Unspecified dementia, unspecified severity, without behavioral disturbance, psychotic disturbance, mood disturbance, and anxiety; B96.89 Other specified bacterial agents as the cause of diseases classified elsewhere; E11.65 Type 2 diabetes mellitus with hyperglycemia; H91.90 Unspecified hearing loss, unspecified ear; Y84.6 Urinary catheterization as the cause of abnormal reaction of the patient, or of later complication, without mention of misadventure at the time of the procedure; Z79.899 Other long term (current) drug therapy; Z79.01 Long term (current) use of anticoagulants; Z79.4 Long term (current) use of insulin; Z85.46 Personal history of malignant neoplasm of prostate; Z92.3 Personal history of irradiation; Z87.891 Personal history of nicotine dependence; Z90.49 Acquired absence of other specified parts of digestive tract
CPT/HCPCS: 0240U; 36415; 36416; 70450; 71045; 74176; 80048; 80053; 81003; 81015; 83036; 83605; 83880; 84484; 85014; 85018; 85025; 85049; 85610; 85730; 87045; 87046; 87077; 87086; 87186; 87324; 87427; 87449; 93005; 96365; 96375; 96376; G0378; J0696; J1815; J2405; J2765; J3010; J3490

== ENCOUNTER 2021-07-19 18:13 | Emergency (ER) | payer MEDICARE ==
[2021-07-19 19:00] LABS: #Eosinphils 0.4 thou/uL (0.0-0.7); #Lymphocytes 0.9 thou/uL (1.20-3.40); #Monocytes 0.9 thou/uL (0.11-0.59); #Neutrophils 5.2 thou/uL (1.40-6.50); %Basophils 0.3 % (0.0-1.0); %Eosinophils 5.1 % (0.0-10.0); %Lymphocytes 11.8 % (21.0-51.0); %Monocytes 11.8 % (0.0-10.0); %Neutrophils 70.9 % (42.0-75.0); Hemoglobin 11.2 g/dL (14.0-18.0); Mean Corpuscular HGB CONC 30.2 g/dL (32.0-36.0); Mean Corpuscular Hemoglobin 24.5 pg (27.0-31.0); Mean Corpuscular Volume 81.1 fL (78.0-98.0); Mean Platelet Volume 8.7 fL (7.4-10.4); Platelet Count 246 thou/uL (130-400); RBC Distribution Width 16.4 % (11.5-14.5); Red Blood Cell (RBC) Count 4.57 mill/uL (4.70-6.10); White Blood Cell (WBC) Count 7.3 thou/uL (4.8-10.8)
[2021-07-19 19:04] LABS: Actual Bicarbonate (HCO3v) 25 mEq/L (22-28); Analyzer IN Cardio ER; Base Excess 0.5 mEq/L (-2.0 to +3.0); Calcium, Ionized (venous) 1.14 mmol/L (1.16-1.32); Chloride (VBG) 100 mmol/L (98-106); Hemoglobin (Hb) 11.7 g/dL (12.6-17.4); Potassium (VBG) 4.55 mmol/L (3.70-5.30); Sodium 132.5 mmol/L (133-146)
[2021-07-19 19:19] LABS: ALT (SGPT) 11 U/L (8-55); AST (SGOT) 11 U/L (5-34); Albumin 3.6 g/dL (3.4-4.8); Alkaline Phosphatase 88 U/L (40-110); Anion Gap 14 mmol/L (10-20); BUN (Urea Nitrogen) 19 mg/dL (8.4-25.7); Bilirubin, Total 0.4 mg/dL (0.2-1.2); Calc. Creatinine Clearance 0 mL/min (70-130); Calcium 8.8 mg/dL (7.8-10.44); Carbon Dioxide 24 mmol/L (23-31); Chloride 101 mmol/L (98-107); Globulin 3.2 g/dL (2.4-3.5); Glucose 415 mg/dL (83-110); Potassium 4.8 mmol/L (3.5-5.1); Protein, Total 6.8 g/dL (5.8-8.1); Sodium 134 mmol/L (136-145)
[2021-07-19 19:54] LABS: Bilirubin Negative (Negative); Blood, Urine 2+ (Negative); Clarity Turbid (Clear); Glucose, Urine (Dipstick) Greater than 1000 mg/dL (Negative); Ketone, Urine Negative (Negative); Leukocyte 500 Leu/uL (Negative); Nitrite 2+ (Negative); Protein, Urine (Dipstick) 30 mg/dL (Neg-Trace); Specific Gravity, Urine 1.025 (1.002-1.036); Squamous Epithelial 0-3 HPF (0-3); Urobilinogen Normal mg/dL (Less than 2); pH, Urine 5.5 (5.0-9.0)
[2021-07-19 20:07] LABS: Bacteria/HPF 3+ HPF (None Seen); WBC/HPF 21-50 HPF (0-3)
[2021-07-19] MEDS ORDERED: HumaLOG 300 UNITS/3 ML VIAL ONE (20:08)
== END 2021-07-19 20:41 ==
LOC: ERS 18:13
DX: E11.65 Type 2 diabetes mellitus with hyperglycemia (principal); N39.0 Urinary tract infection, site not specified; I10 Essential (primary) hypertension; K21.9 Gastro-esophageal reflux disease without esophagitis; I48.91 Unspecified atrial fibrillation; G30.9 Alzheimer's disease, unspecified; F02.80 Dementia in other diseases classified elsewhere, unspecified severity, without behavioral disturbance, psychotic disturbance, mood disturbance, and anxiety; Z85.46 Personal history of malignant neoplasm of prostate; Z85.828 Personal history of other malignant neoplasm of skin
CPT/HCPCS: 36415; 36416; 71045; 80053; 81003; 81015; 82010; 82805; 85025; J1815

== ENCOUNTER 2021-09-10 07:47 | Inpatient (IN) | payer MEDICARE ==
[2021-09-10] MEDS ORDERED: Vancomycin 1 GM/200 ML BAG ONE (08:35)
[2021-09-10] MEDS ORDERED: Cefepime 2 GM VIAL ONE (08:36)
[2021-09-10 08:38] LABS: #Eosinphils 0.2 thou/uL (0.0-0.7); #Monocytes 0.9 thou/uL (0.11-0.59); #Neutrophils 7.9 thou/uL (1.40-6.50); %Basophils 0.2 % (0.0-1.0); %Eosinophils 1.9 % (0.0-10.0); %Monocytes 8.5 % (0.0-10.0); %Neutrophils 79.4 % (42.0-75.0); Hemoglobin 11.2 g/dL (14.0-18.0); Mean Corpuscular HGB CONC 30.1 g/dL (32.0-36.0); Mean Corpuscular Hemoglobin 23.2 pg (27.0-31.0); Mean Corpuscular Volume 77.2 fL (78.0-98.0); Platelet Count 337 thou/uL (130-400); RBC Distribution Width 16.1 % (11.5-14.5); Red Blood Cell (RBC) Count 4.81 mill/uL (4.70-6.10)
[2021-09-10] MEDS ORDERED: Iopamidol-370 76% 500 ML 1 ML ONE (08:53)
[2021-09-10 08:57] LABS: ALT (SGPT) 36 U/L (8-55); AST (SGOT) 34 U/L (5-34); Albumin 3.3 g/dL (3.4-4.8); Alkaline Phosphatase 89 U/L (40-110); Anion Gap 17 mmol/L (10-20); BUN (Urea Nitrogen) 13 mg/dL (8.4-25.7); Bilirubin, Total 0.7 mg/dL (0.2-1.2); CK (CPK) 282 U/L (30-200); Calc. Creatinine Clearance 0 mL/min (70-130); Calcium 9.7 mg/dL (7.8-10.44); Carbon Dioxide 25 mmol/L (23-31); Chloride 97 mmol/L (98-107); Globulin 5.4 g/dL (2.4-3.5); Glucose 131 mg/dL (83-110); Magnesium 2.1 mg/dL (1.6-2.6); Potassium 4.3 mmol/L (3.5-5.1); Protein, Total 8.7 g/dL (5.8-8.1); Sodium 135 mmol/L (136-145)
[2021-09-10 09:05] LABS: Bacteria/HPF 4+ HPF (None Seen); Bilirubin Negative (Negative); Blood, Urine 2+ (Negative); Glucose, Urine (Dipstick) Normal (Negative); Ketone, Urine Negative (Negative); Leukocyte 500 Leu/uL (Negative); Nitrite 2+ (Negative); Protein, Urine (Dipstick) 100 mg/dL (Neg-Trace); RBC/HPF 21-50 HPF (0-3); Specific Gravity, Urine 1.019 (1.002-1.036); WBC/HPF Greater than 50 HPF (0-3); pH, Urine 6.5 (5.0-9.0)
[2021-09-10 09:06] LABS: Clarity Turbid (Clear)
[2021-09-10] MEDS ORDERED: Sodium Chloride 0.9% 1,000 ML IV SCH (16:00)
[2021-09-10] MEDS ORDERED: Piperacillin/Tazobactam 3.375 GM in Sodium Chloride 0.9% 100 ML IVPB SCH ×2 (16:15→16:30)
[2021-09-10] MEDS ORDERED: VANCOMYCIN 2 GRAM/500 ML BAG 2 GM in Premix Bag 1 BAG IVPB SCH (16:30)
[2021-09-10 16:35] VITALS: BMI 28.5
[2021-09-10] MEDS: Lactated Ringer's 1,000 ML IV SCH (17:03)
[2021-09-10] MEDS ORDERED: Ondansetron ODT 4 MG TAB PO PRN (18:48)
[2021-09-10] MEDS ORDERED: Dextrose 50% Abboject 50 ML SYRINGE SLOW IVP PRN (18:48)
[2021-09-10] MEDS ORDERED: Dextrose 5% in Water 1,000 ML IV PRN (18:48)
[2021-09-10] MEDS ORDERED: Bisacodyl 5 MG TAB PO PRN (18:48)
[2021-09-10] MEDS ORDERED: HumaLOG 300 UNITS/3 ML VIAL SC PRN (18:48)
[2021-09-10] MEDS ORDERED: Senokot S 8.6-50 MG TAB PO PRN (18:48)
[2021-09-10] MEDS ORDERED: Acetaminophen 325 MG TAB PO PRN (18:48)
[2021-09-10] MEDS ORDERED: Ondansetron PF 4 MG/2 ML Vial IVP PRN (18:48)
[2021-09-10] MEDS ORDERED: Acetaminophen 650 MG Suppository PR PRN (18:48)
[2021-09-10] MEDS: Piperacillin/Tazobactam 3.375 GM in Sodium Chloride 0.9% 100 ML IVPB SCH (21:00)
[2021-09-10] MEDS: Atorvastatin Calcium 10 MG TAB PO SCH ×2 (22:28→22:32)
[2021-09-10] MEDS: Senokot S 8.6-50 MG TAB PO SCH ×2 (22:29→22:33)
[2021-09-10] MEDS: Apixaban 5 MG TAB PO SCH ×2 (22:29→22:32)
[2021-09-10] MEDS: Insulin Glargine 30 UNITS/0.3 ML VIAL SC SCH (22:31)
[2021-09-11] MEDS: Piperacillin/Tazobactam 3.375 GM in Sodium Chloride 0.9% 100 ML IVPB SCH (04:45)
[2021-09-11 07:15] LABS: #Eosinphils 0.3 thou/uL (0.0-0.7); #Lymphocytes 0.7 thou/uL (1.20-3.40); #Monocytes 0.9 thou/uL (0.11-0.59); #Neutrophils 6.7 thou/uL (1.40-6.50); %Basophils 0.5 % (0.0-1.0); %Eosinophils 3.4 % (0.0-10.0); %Lymphocytes 8.6 % (21.0-51.0); %Neutrophils 77.6 % (42.0-75.0); Mean Corpuscular HGB CONC 30.2 g/dL (32.0-36.0); Mean Corpuscular Volume 79.3 fL (78.0-98.0); Mean Platelet Volume 7.7 fL (7.4-10.4); Platelet Count 286 thou/uL (130-400); RBC Distribution Width 16.1 % (11.5-14.5); Red Blood Cell (RBC) Count 4.17 mill/uL (4.70-6.10); White Blood Cell (WBC) Count 8.6 thou/uL (4.8-10.8)
[2021-09-11 07:46] LABS: ALT (SGPT) 37 U/L (8-55); AST (SGOT) 36 U/L (5-34); Albumin 2.7 g/dL (3.4-4.8); Alkaline Phosphatase 78 U/L (40-110); Anion Gap 12 mmol/L (10-20); BUN (Urea Nitrogen) 11 mg/dL (8.4-25.7); Bilirubin, Total 0.7 mg/dL (0.2-1.2); Calc. Creatinine Clearance 75 mL/min (70-130); Calcium 9.2 mg/dL (7.8-10.44); Carbon Dioxide 28 mmol/L (23-31); Chloride 99 mmol/L (98-107); Globulin 4.4 g/dL (2.4-3.5); Glucose 81 mg/dL (83-110); Potassium 4.3 mmol/L (3.5-5.1); Protein, Total 7.1 g/dL (5.8-8.1); Sodium 135 mmol/L (136-145)
[2021-09-11] MEDS: Lactated Ringer's 1,000 ML IV SCH (08:27)
[2021-09-11] MEDS: Apixaban 5 MG TAB PO SCH ×2 (08:28→21:50)
[2021-09-11] MEDS: Insulin Glargine 30 UNITS/0.3 ML VIAL SC SCH (08:28)
[2021-09-11] MEDS: Senokot S 8.6-50 MG TAB PO SCH (08:28)
[2021-09-11] MEDS: Spironolactone 25 MG TAB PO SCH (08:28)
[2021-09-11] MEDS: Vancomycin 1.5 GRAM/300 ML BAG 1.5 GM in Premix Bag 1 BAG IVPB SCH (16:16)
[2021-09-11] MEDS: Cefepime 1 GM in Sodium Chloride 0.9% 100 ML IVPB SCH (21:51)
[2021-09-11] MEDS: Atorvastatin Calcium 10 MG TAB PO SCH (21:51)
[2021-09-12] MEDS: Insulin Glargine 30 UNITS/0.3 ML VIAL SC SCH ×3 (00:51→23:33)
[2021-09-12] MEDS: Senokot S 8.6-50 MG TAB PO SCH ×3 (00:52→22:51)
[2021-09-12] MEDS: Lactated Ringer's 1,000 ML IV SCH ×2 (03:51→10:35)
[2021-09-12] MEDS: Bicalutamide 50 MG TAB PO SCH (10:36)
[2021-09-12] MEDS: Spironolactone 25 MG TAB PO SCH (10:36)
[2021-09-12] MEDS: Apixaban 5 MG TAB PO SCH ×2 (10:36→22:50)
[2021-09-12] MEDS: Cefepime 1 GM in Sodium Chloride 0.9% 100 ML IVPB SCH ×2 (10:36→22:51)
[2021-09-12] MEDS ORDERED: HumaLOG 300 UNITS/3 ML VIAL SC PRN (14:12)
[2021-09-12] MEDS ORDERED: Dextrose 50% Abboject 50 ML SYRINGE SLOW IVP PRN (14:12)
[2021-09-12] MEDS ORDERED: Dextrose 5% in Water 1,000 ML IV PRN (14:12)
[2021-09-12] MEDS: Vancomycin 1.5 GRAM/300 ML BAG 1.5 GM in Premix Bag 1 BAG IVPB SCH ×2 (17:02→17:52)
[2021-09-12 17:05] LABS: Vancomycin, Trough 10.2 ug/mL
[2021-09-12] MEDS: HumaLOG 300 UNITS/3 ML VIAL SC PRN (17:05)
[2021-09-12] MEDS: VANCOMYCIN 2 GRAM/500 ML BAG 2 GM in Premix Bag 1 BAG IVPB SCH (17:51)
[2021-09-12] MEDS: Atorvastatin Calcium 10 MG TAB PO SCH (22:50)
[2021-09-13] MEDS: Apixaban 5 MG TAB PO SCH ×2 (09:25→22:35)
[2021-09-13] MEDS: Cefepime 1 GM in Sodium Chloride 0.9% 100 ML IVPB SCH (09:25)
[2021-09-13] MEDS: Senokot S 8.6-50 MG TAB PO SCH ×2 (09:25→22:35)
[2021-09-13] MEDS: Bicalutamide 50 MG TAB PO SCH (09:25)
[2021-09-13] MEDS: Insulin Glargine 30 UNITS/0.3 ML VIAL SC SCH ×2 (09:25→22:36)
[2021-09-13] MEDS: Spironolactone 25 MG TAB PO SCH (09:25)
[2021-09-13] MEDS: VANCOMYCIN 2 GRAM/500 ML BAG 2 GM in Premix Bag 1 BAG IVPB SCH (17:08)
[2021-09-13] MEDS: metFORMIN 500 MG TAB PO SCH (17:08)
[2021-09-13] MEDS: HumaLOG 300 UNITS/3 ML VIAL SC PRN (17:09)
[2021-09-13] MEDS: Cefepime 2 GM in Sodium Chloride 0.9% 100 ML IVPB SCH (22:35)
[2021-09-13] MEDS: Atorvastatin Calcium 10 MG TAB PO SCH (22:35)
[2021-09-14] MEDS: Cefepime 2 GM in Sodium Chloride 0.9% 100 ML IVPB SCH ×2 (08:19→20:35)
[2021-09-14] MEDS: Senokot S 8.6-50 MG TAB PO SCH ×2 (08:20→20:36)
[2021-09-14] MEDS: Spironolactone 25 MG TAB PO SCH (08:20)
[2021-09-14] MEDS: Bicalutamide 50 MG TAB PO SCH (08:20)
[2021-09-14] MEDS: metFORMIN 500 MG TAB PO SCH ×2 (08:20→18:41)
[2021-09-14] MEDS: Apixaban 5 MG TAB PO SCH ×2 (08:20→20:35)
[2021-09-14] MEDS: Insulin Glargine 30 UNITS/0.3 ML VIAL SC SCH ×2 (08:20→20:36)
[2021-09-14] MEDS: HumaLOG 300 UNITS/3 ML VIAL SC PRN ×2 (12:54→18:42)
[2021-09-14 17:58] LABS: Vancomycin, Trough 16.2 ug/mL
[2021-09-14] MEDS: VANCOMYCIN 2 GRAM/500 ML BAG 2 GM in Premix Bag 1 BAG IVPB SCH (19:18)
[2021-09-14] MEDS: Atorvastatin Calcium 10 MG TAB PO SCH (20:35)
[2021-09-15] MEDS: HumaLOG 300 UNITS/3 ML VIAL SC PRN (04:45)
[2021-09-15] MEDS: metFORMIN 500 MG TAB PO SCH ×2 (08:51→18:11)
[2021-09-15] MEDS: Spironolactone 25 MG TAB PO SCH (08:51)
[2021-09-15] MEDS: Apixaban 5 MG TAB PO SCH ×2 (08:51→20:39)
[2021-09-15] MEDS: Senokot S 8.6-50 MG TAB PO SCH ×2 (08:52→20:39)
[2021-09-15] MEDS: Cefepime 2 GM in Sodium Chloride 0.9% 100 ML IVPB SCH ×2 (08:52→20:39)
[2021-09-15] MEDS: Insulin Glargine 30 UNITS/0.3 ML VIAL SC SCH ×2 (08:52→20:39)
[2021-09-15] MEDS: Bicalutamide 50 MG TAB PO SCH (08:52)
[2021-09-15] MEDS: VANCOMYCIN 2 GRAM/500 ML BAG 2 GM in Premix Bag 1 BAG IVPB SCH (18:11)
[2021-09-15] MEDS: Atorvastatin Calcium 10 MG TAB PO SCH (20:39)
[2021-09-16] MEDS: Senokot S 8.6-50 MG TAB PO SCH ×2 (09:30→20:26)
[2021-09-16] MEDS: Apixaban 5 MG TAB PO SCH ×2 (09:30→20:27)
[2021-09-16] MEDS: metFORMIN 500 MG TAB PO SCH ×2 (09:30→17:07)
[2021-09-16] MEDS: Insulin Glargine 30 UNITS/0.3 ML VIAL SC SCH ×2 (09:30→20:38)
[2021-09-16] MEDS: Bicalutamide 50 MG TAB PO SCH (09:30)
[2021-09-16] MEDS: Spironolactone 25 MG TAB PO SCH (09:30)
[2021-09-16] MEDS ORDERED: Meropenem 1 GM in Sodium Chloride 0.9% 100 ML IVPB SCH (14:00)
[2021-09-16] MEDS: Meropenem 1 GM in Sodium Chloride 0.9% 100 ML IVPB SCH (20:27)
[2021-09-16] MEDS: Atorvastatin Calcium 10 MG TAB PO SCH (20:27)
[2021-09-17] MEDS: Meropenem 1 GM in Sodium Chloride 0.9% 100 ML IVPB SCH ×3 (05:44→21:30)
[2021-09-17 07:50] LABS: #Eosinphils 0.4 thou/uL (0.0-0.7); #Monocytes 0.7 thou/uL (0.11-0.59); %Basophils 0.4 % (0.0-1.0); %Eosinophils 5.1 % (0.0-10.0); %Lymphocytes 13.7 % (21.0-51.0); %Monocytes 9.9 % (0.0-10.0); %Neutrophils 70.9 % (42.0-75.0); Hemoglobin 9.8 g/dL (14.0-18.0); Mean Corpuscular HGB CONC 30.3 g/dL (32.0-36.0); Mean Corpuscular Hemoglobin 24.2 pg (27.0-31.0); Mean Corpuscular Volume 79.8 fL (78.0-98.0); Mean Platelet Volume 7.6 fL (7.4-10.4); Platelet Count 338 thou/uL (130-400); RBC Distribution Width 16.7 % (11.5-14.5); Red Blood Cell (RBC) Count 4.06 mill/uL (4.70-6.10)
[2021-09-17] MEDS: Bicalutamide 50 MG TAB PO SCH (08:12)
[2021-09-17] MEDS: metFORMIN 500 MG TAB PO SCH ×2 (08:12→17:16)
[2021-09-17 08:13] LABS: Anion Gap 13 mmol/L (10-20); BUN (Urea Nitrogen) 13 mg/dL (8.4-25.7); Calc. Creatinine Clearance 81 mL/min (70-130); Carbon Dioxide 27 mmol/L (23-31); Chloride 101 mmol/L (98-107); Glucose 108 mg/dL (83-110); Potassium 3.8 mmol/L (3.5-5.1); Sodium 137 mmol/L (136-145)
[2021-09-17] MEDS: Apixaban 5 MG TAB PO SCH ×2 (08:13→21:31)
[2021-09-17] MEDS: Insulin Glargine 30 UNITS/0.3 ML VIAL SC SCH ×2 (08:13→21:30)
[2021-09-17] MEDS: Spironolactone 25 MG TAB PO SCH (08:13)
[2021-09-17] MEDS: Senokot S 8.6-50 MG TAB PO SCH ×2 (08:13→21:31)
[2021-09-17] MEDS: Atorvastatin Calcium 10 MG TAB PO SCH (21:30)
[2021-09-18] MEDS: Meropenem 1 GM in Sodium Chloride 0.9% 100 ML IVPB SCH ×2 (05:44→13:22)
[2021-09-18 06:07] LABS: #Eosinphils 0.3 thou/uL (0.0-0.7); #Lymphocytes 1.2 thou/uL (1.20-3.40); #Monocytes 0.9 thou/uL (0.11-0.59); #Neutrophils 4.9 thou/uL (1.40-6.50); %Basophils 0.6 % (0.0-1.0); %Eosinophils 4.7 % (0.0-10.0); %Lymphocytes 15.6 % (21.0-51.0); %Monocytes 12.2 % (0.0-10.0); %Neutrophils 66.9 % (42.0-75.0); Hemoglobin 9.8 g/dL (14.0-18.0); Mean Corpuscular HGB CONC 30.6 g/dL (32.0-36.0); Mean Corpuscular Hemoglobin 24.1 pg (27.0-31.0); Mean Platelet Volume 7.6 fL (7.4-10.4); Platelet Count 338 thou/uL (130-400); RBC Distribution Width 16.8 % (11.5-14.5); Red Blood Cell (RBC) Count 4.05 mill/uL (4.70-6.10); White Blood Cell (WBC) Count 7.4 thou/uL (4.8-10.8)
[2021-09-18] MEDS: Bicalutamide 50 MG TAB PO SCH (08:21)
[2021-09-18] MEDS: metFORMIN 500 MG TAB PO SCH ×2 (08:21→18:08)
[2021-09-18] MEDS: Apixaban 5 MG TAB PO SCH (08:21)
[2021-09-18] MEDS: Senokot S 8.6-50 MG TAB PO SCH (08:21)
[2021-09-18] MEDS: Spironolactone 25 MG TAB PO SCH (08:21)
[2021-09-18] MEDS: Insulin Glargine 30 UNITS/0.3 ML VIAL SC SCH (08:21)
[2021-09-18 21:13] VITALS: BP 146/81; TEMP 98.6
[2021-09-19] MEDS ORDERED: Glimepiride 4 MG TAB PO SCH (08:00)
[2021-09-19] MEDS ORDERED: Vit A,C & E/Lutein/Minerals Tablet PO SCH (09:00)
[2021-09-19] MEDS ORDERED: Furosemide 40 MG TAB PO SCH (09:00)
== END 2021-09-18 21:50 | disposition hospice, home (50) | DRG 539 ==
LOC: ERS 07:47 → T4-A 14:51
PROVIDERS: ADMIT Internal Medicine; ATTEND Internal Medicine
DX: M86.8X8 Other osteomyelitis, other site (principal); G93.41 Metabolic encephalopathy; N39.0 Urinary tract infection, site not specified; Z66 Do not resuscitate; Z51.5 Encounter for palliative care; Z20.822 Contact with and (suspected) exposure to COVID-19; E11.9 Type 2 diabetes mellitus without complications; I10 Essential (primary) hypertension; K21.00 Gastro-esophageal reflux disease with esophagitis, without bleeding; E78.5 Hyperlipidemia, unspecified; D63.1 Anemia in chronic kidney disease; D50.9 Iron deficiency anemia, unspecified; K21.9 Gastro-esophageal reflux disease without esophagitis; G30.9 Alzheimer's disease, unspecified; F02.80 Dementia in other diseases classified elsewhere, unspecified severity, without behavioral disturbance, psychotic disturbance, mood disturbance, and anxiety; N40.1 Benign prostatic hyperplasia with lower urinary tract symptoms; I48.0 Paroxysmal atrial fibrillation; R33.8 Other retention of urine; Q54.9 Hypospadias, unspecified; Z99.3 Dependence on wheelchair; Z82.49 Family history of ischemic heart disease and other diseases of the circulatory system; Z79.899 Other long term (current) drug therapy; Z79.01 Long term (current) use of anticoagulants; Z79.4 Long term (current) use of insulin; Z85.46 Personal history of malignant neoplasm of prostate; Z92.3 Personal history of irradiation; Z85.828 Personal history of other malignant neoplasm of skin; Z90.49 Acquired absence of other specified parts of digestive tract
CPT/HCPCS: 36415; 36416; 71045; 74177; 80048; 80053; 80202; 81003; 81015; 82550; 82565; 83605; 83735; 84443; 84484; 85025; 85652; 86140; 87040; 87086; 93005; 96365; 96367; J0692; J1815; J2185; J2543; J3370; J3490; J7120; Q9967; U0003; U0005